=== PATIENT | male | born 1960 | race Caucasian/White ===

== ENCOUNTER 2018-01-29 12:21 | Inpatient (IN) | payer OTHER ==
--- NOTE | 2018-01-29 14:06 | ED ---
General Adult HPI - General Chief complaint: Neuro Symptoms/Deficit Stated complaint: fall slurred speech Source: patient Mode of arrival: wheelchair Limitations: no limitations - History of Present Illness Initial comments: Dictation was produced using [employer] dictation software. please excuse any grammatical, word or spelling errors. Chief Complaint: 57-year-old male multiple comorbidities presents with slurred speech 3 days. History of Present Illness: Patient is a 57-year-old male with multiple comorbidities presents with slurred speech. Patient has history of CVAs, TIAs, seizures. He is postponed on several medications however has not taken them. Patient is brought in by family. Family was concerned patient's have a stroke. He has been having slurred speech. He has had no issues with hypertension. This is grossly abnormal for them prompting them to bring patient to the emergency department today. Patient has no complaints at this time. The ROS documented in this emergency department record has been reviewed and confirmed by me. Those systems with pertinent positive or negative responses have been documented in the HPI. All other systems are other negative and/or noncontributory. - Related Data Home Medications Medication Instructions Recorded Confirmed Pantoprazole Sodium 40 mg PO BID 06/12/15 01/29/18 risperiDONE [RisperDAL] 0.5 mg PO DAILY 06/12/15 01/29/18 Ibuprofen [Motrin] 800 mg PO TID PRN 06/13/17 01/29/18 risperiDONE [RisperDAL] 1 mg PO HS 06/13/17 01/29/18 Ergocalciferol [Vitamin D2] 50,000 unit PO Q7D 01/29/18 01/29/18 Metoprolol Tartrate [Lopressor] 50 mg PO BID 01/29/18 01/29/18 Pravastatin Sodium [Pravachol] 20 mg PO HS 01/29/18 01/29/18 Previous Rx's Medication Instructions Recorded Lisinopril [Zestril] 10 mg PO DAILY #30 tab 06/16/17 levETIRAcetam [Keppra] 750 mg PO Q12HR #60 tab 06/16/17 Allergies Allergy/AdvReac Type Severity Reaction Status Date / Time No Known Allergies Allergy Verified 01/29/18 12:43 Review of Systems ROS Statement: Those systems with pertinent positive or pertinent negative responses have been documented in the HPI. ROS Other: All systems not noted in ROS Statement are negative. Past Medical History Past Medical History: CVA/TIA, GERD/Reflux, Hypertension, Seizure Disorder Additional Past Medical History / Comment(s): 04-16-15 pt admitted for cva.other past medical hx included: migraines,-2014 TIA,hx broken rt shoulder( has plate/screws) History of Any Multi-Drug Resistant Organisms: None Reported Past Surgical History: Appendectomy, Cholecystectomy, Orthopedic Surgery Additional Past Surgical History / Comment(s): rt shoulder surgery(plate/screws) , epidural inj to back, egd Past Anesthesia/Blood Transfusion Reactions: No Reported Reaction Past Psychological History: Depression Smoking Status: Current every day smoker Past Alcohol Use History: None Reported Past Drug Use History: None Reported - Past Family History Mother Family Medical History: Hypertension Additional Family Medical History / Comment(s): heart problems Father History Unknown: Yes General Exam - General Exam Comments Initial Comments: PHYSICAL EXAM: General Impression: Alert and oriented x3, not in acute distress, slurred speech HEENT: Normocephalic atraumatic, extra-ocular movements intact, pupils equal and reactive to light bilaterally, mucous membranes moist. Cardiovascular: Heart regular rate and rhythm, S1&S2 audible, no murmurs, rubs or gallops Chest: Lungs clear to auscultation bilaterally, no rhonchi, no wheeze, no rales Abdomen: Bowel sounds present, abdomen soft, non-tender, non-distended, no organomegaly Musculoskeletal: Pulses present and equal in all extremities, no peripheral edema Motor: Power 5/5 bilaterally, no focal deficits noted Neurological: CN II-XII grossly intact, no focal motor or sensory deficits noted , not a phasic, no extremity neuro deficits, no facial droop Skin: Intact with no visualized rashes Psych: Normal affect and mood Limitations: no limitations Course Vital Signs 01/29/18 01/29/18 12:30 14:32 Temperature 97.8 F Pulse Rate 49 L 42 L Respiratory 18 18 Rate Blood Pressure 173/94 170/97 O2 Sat by Pulse 97 99 Oximetry Medical Decision Making - Medical Decision Making ED course: 57-year-old male with multiple neurologic comorbidities presents with slurred speech 3 weeks. Patient has multiple strokes in the past and has been evaluated for seizures heart rate 49, worse vital signs within normal limits.Patient's clinical presentation suspicious for CVA. Laboratory evaluation obtained. CBC unremarkable. Coag panel unremarkable. Metabolic panel is negative. Cardiac enzymes negative. Chest x-ray shows no acute processes. Computed tomography scan of the brain was obtained showing a stable old right-sided lacunar infarct with more prominent left-sided lacunar infarct on current study versus most recent CT though likely still chronic. Patient had TPA candidate given duration of symptoms approximately 3 days. Patient given aspirin. Patient be admitted for CVA with neurology consult. EKG interpretation: Ventricular rate 46,. Interval 180, QS 90, QTC 395. No FL prolongation, no QTC prolongation, no ST or T-wave changes noted. Overall, this EKG is unremarkable - Lab Data Result diagrams: 01/29/18 14:07 01/29/18 14:07 Lab Results 01/29/18 01/29/18 01/29/18 Range/Units 14:07 14:07 14:07 WBC 5.7 (3.8-10.6) k/uL RBC 4.69 (4.30-5.90) m/uL Hgb 13.6 (13.0-17.5) gm/dL Hct 39.6 (39.0-53.0) % MCV 84.5 (80.0-100.0) fL MCH 28.9 (25.0-35.0) pg MCHC 34.3 (31.0-37.0) g/dL RDW 13.8 (11.5-15.5) % Plt Count 231 (150-450) k/uL Neutrophils % 62 % Lymphocytes % 29 % Monocytes % 5 % Eosinophils % 2 % Basophils % 0 % Neutrophils # 3.5 (1.3-7.7) k/uL Lymphocytes # 1.7 (1.0-4.8) k/uL Monocytes # 0.3 (0-1.0) k/uL Eosinophils # 0.1 (0-0.7) k/uL Basophils # 0.0 (0-0.2) k/uL PT (9.0-12.0) sec INR (<1.2) APTT (22.0-30.0) sec Sodium 140 (137-145) mmol/L Potassium 4.4 (3.5-5.1) mmol/L Chloride 105 (98-107) mmol/L Carbon Dioxide 26 (22-30) mmol/L Anion Gap 9 mmol/L BUN 11 (9-20) mg/dL Creatinine 0.93 (0.66-1.25) mg/dL Est GFR (CKD-EPI)AfAm >90 (>60 ml/min/1.73 sqM) Est GFR (CKD-EPI)NonAf >90 (>60 ml/min/1.73 sqM) Glucose 78 (74-99) mg/dL Calcium 9.3 (8.4-10.2) mg/dL Total Bilirubin 0.7 (0.2-1.3) mg/dL AST 23 (17-59) U/L ALT 31 (21-72) U/L Alkaline Phosphatase 124 (38-126) U/L Total Creatine Kinase 187 H (55-170) U/L CK-MB (CK-2) 1.8 (0.0-2.4) ng/mL CK-MB (CK-2) Rel Index 1.0 Troponin I <0.012 (0.000-0.034) ng/mL Total Protein 6.9 (6.3-8.2) g/dL Albumin 4.0 (3.5-5.0) g/dL 01/29/18 Range/Units 14:07 WBC (3.8-10.6) k/uL RBC (4.30-5.90) m/uL Hgb (13.0-17.5) gm/dL Hct (39.0-53.0) % MCV (80.0-100.0) fL MCH (25.0-35.0) pg MCHC (31.0-37.0) g/dL RDW (11.5-15.5) % Plt Count (150-450) k/uL Neutrophils % % Lymphocytes % % Monocytes % % Eosinophils % % Basophils % % Neutrophils # (1.3-7.7) k/uL Lymphocytes # (1.0-4.8) k/uL Monocytes # (0-1.0) k/uL Eosinophils # (0-0.7) k/uL Basophils # (0-0.2) k/uL PT 10.4 (9.0-12.0) sec INR 1.1 (<1.2) APTT 23.1 (22.0-30.0) sec Sodium (137-145) mmol/L Potassium (3.5-5.1) mmol/L Chloride (98-107) mmol/L Carbon Dioxide (22-30) mmol/L Anion Gap mmol/L BUN (9-20) mg/dL Creatinine (0.66-1.25) mg/dL Est GFR (CKD-EPI)AfAm (>60 ml/min/1.73 sqM) Est GFR (CKD-EPI)NonAf (>60 ml/min/1.73 sqM) Glucose (74-99) mg/dL Calcium (8.4-10.2) mg/dL Total Bilirubin (0.2-1.3) mg/dL AST (17-59) U/L ALT (21-72) U/L Alkaline Phosphatase (38-126) U/L Total Creatine Kinase (55-170) U/L CK-MB (CK-2) (0.0-2.4) ng/mL CK-MB (CK-2) Rel Index Troponin I (0.000-0.034) ng/mL Total Protein (6.3-8.2) g/dL Albumin (3.5-5.0) g/dL Disposition Clinical Impression: CVA (cerebral vascular accident) Disposition: ADMITTED IP TO THIS HOSP Condition: Good Referrals: Rosanne Mari MD [Primary Care Provider] - 1-2 days Decision Time: 15:57
[2018-01-29 14:20] LABS: Basophils % (A) 0 %; Eosinophils # (A) 0.1 k/uL (0-0.7); Eosinophils % (A) 2 %; HCT 39.6 % (39.0-53.0); HGB 13.6 gm/dL (13.0-17.5); Lymphocytes # (A) 1.7 k/uL (1.0-4.8); Lymphocytes % (A) 29 %; MCH 28.9 pg (25.0-35.0); MCHC 34.3 g/dL (31.0-37.0); MCV 84.5 fL (80.0-100.0); Mean Platelet Volume 7.8; Monocytes # (A) 0.3 k/uL (0-1.0); Monocytes % (A) 5 %; Neutrophils # (A) 3.5 k/uL (1.3-7.7); Neutrophils % (A) 62 %; Platelet Count 231 k/uL (150-450); RBC 4.69 m/uL (4.30-5.90); RDW 13.8 % (11.5-15.5); WBC 5.7 k/uL (3.8-10.6)
[2018-01-29 14:25] LABS: INR 1.1 (<1.2); Prothrombin Time 10.4 sec (9.0-12.0)
[2018-01-29 14:26] LABS: Partial Thromboplastin Time 23.1 sec (22.0-30.0)
--- NOTE | 2018-01-29 14:27 | CT ---
EXAMINATION TYPE: CT brain wo con DATE OF EXAM: 01/29/2018 HISTORY: Fall, slurred speech CT DLP: 1029.7 mGycm. Automated Exposure Control for Dose Reduction was Utilized. TECHNIQUE: CT scan of the head is performed without contrast. COMPARISON: CT brain June 13, 2017. FINDINGS: There is no acute intracranial hemorrhage or midline shift identified. There is diffuse v entricular and sulcal prominence consistent with diffuse age-related cerebral atrophy. There is low- attenuation in the periventricular white matter consistent with chronic small vessel ischemic change. Old infarcts right anterior internal capsule and left internal capsule axial image 24 are redemonstr ated, latter slightly more prominent from prior CT, former is stable. The globes are intact and the v isualized sinuses are clear. The calvarium is intact. IMPRESSION: No acute intracranial hemorrhage or midline shift. There is mild to moderate diffuse ag e-related cerebral atrophy and chronic small vessel ischemic change redemonstrated. Stable old right- sided lacunar infarct with more prominent left sided lacunar infarct on current study versus most rec ent CT though still favored overall chronic in age. If clinical concern for acute stroke persists further investigation with MRI may be warranted.
[2018-01-29 14:29] LABS: ALT 31 U/L (21-72); AST 23 U/L (17-59); Alkaline Phosphatase 124 U/L (38-126); Anion Gap 9 mmol/L; Blood Urea Nitrogen 11 mg/dL (9-20); Calcium 9.3 mg/dL (8.4-10.2); Carbon Dioxide 26 mmol/L (22-30); Chloride 105 mmol/L (98-107); Glucose 78 mg/dL (74-99); Potassium 4.4 mmol/L (3.5-5.1); Sodium 140 mmol/L (137-145); Total Bilirubin 0.7 mg/dL (0.2-1.3); Total Protein 6.9 g/dL (6.3-8.2)
--- NOTE | 2018-01-29 14:30 | XR ---
EXAMINATION TYPE: XR chest 2V DATE OF EXAM: 01/29/2018 COMPARISON: 10/21/2015 TECHNIQUE: PA and lateral views submitted. HISTORY: Altered mental status FINDINGS: The lungs are clear and there is no pneumothorax, pleural effusion, or focal pneumonia. Postsurgica l change right shoulder. No overt failure. Hyperinflation suggests COPD. Hypertrophic change of the s pine. Surgical clips in the abdomen. IMPRESSION: 1. No acute process.
[2018-01-29 14:39] LABS: Creatine Kinase 187 U/L (55-170)
[2018-01-29 14:52] LABS: Creatine Kinase MB 1.8 ng/mL (0.0-2.4); Troponin I <0.012 ng/mL (0.000-0.034)
[2018-01-29] MEDS ORDERED: ASPIRIN 325 MG TAB PO STA (15:48)
[2018-01-29] MEDS ORDERED: IBUPROFEN 800 MG TAB PO PRN (18:27)
[2018-01-29] MEDS ORDERED: TEMAZEPAM 15 MG CAP PO PRN (18:28)
[2018-01-29] MEDS ORDERED: ACETAMINOPHEN TAB 500 MG TAB PO PRN (18:28)
[2018-01-29] MEDS ORDERED: HYDROcodone/APAP 5-325MG 1 EACH TAB PO PRN (18:28)
[2018-01-29] MEDS ORDERED: ALPRAZolam 0.25 MG TAB PO PRN (18:28)
[2018-01-29 18:55] LABS: Appearance,Urine Clear (Clear); Bilirubin,Urine Negative (Negative); Blood,Urine Negative (Negative); Color,Urine Yellow; Glucose,Urine (UA) Negative (Negative); Ketones,Urine Trace (Negative); Leukocyte Esterase,Urine Negative (Negative); Nitrite,Urine Negative (Negative); Protein,Urine Negative (Negative); Specific Gravity,Urine 1.012 (1.001-1.035); Urobilinogen,Urine <2.0 mg/dL (<2.0)
[2018-01-29 19:05] LABS: Amphetamine Screen,Urine Not Detected (NotDetected); Barbiturate Screen,Urine Not Detected (NotDetected); Benzodiazepines Screen,Urine Detected (NotDetected); Cocaine Screen,Urine Not Detected (NotDetected); Methadone Screen, Urine Not Detected (NotDetected); Opiate Screen,Urine Not Detected (NotDetected); Oxycodone Screen, Urine Not Detected (NotDetected); Phencyclidine Screen,Urine Not Detected (NotDetected); Tricyclic Antidepressant,Urine Not Detected (NotDetected); Urn Cannabinoid Scrn Not Detected (NotDetected)
--- NOTE | 2018-01-29 19:26 | US ---
EXAMINATION TYPE: US carotid duplex BILAT DATE OF EXAM: 01/29/2018 COMPARISON: US CLINICAL HISTORY: stroke. Abnormal speech, falls EXAM MEASUREMENTS: RIGHT: Peak Systolic Velocity (PSV) cm/sec ----- Right CCA: 69.7 ----- Right ICA: 87.8 ----- Right ECA: 111.2 ICA/CCA ratio: 1.3 RIGHT: End Diastole cm/sec ----- Right CCA: 20.0 ----- Right ICA: 26.3 ----- Right ECA: 16.7 LEFT: Peak Systolic Velocity (PSV) cm/sec ----- Left CCA: 76.7 ----- Left ICA: 61.9 ----- Left ECA: 93.3 ICA/CCA ratio: 0.8 LEFT: End Diastole cm/sec ----- Left CCA: 17.4 ----- Left ICA: 18.2 ----- Left ECA: 10.9 VERTEBRALS (direction of flow): Right Vertebral: Appeared occluded as seen on previous Left Vertebral: Antegrade Rhythm: Normal Soft plaque bilaterally, more on right, with no evidence of significant stenosis/ Right vertebral a ppeared occluded IMPRESSION: No flow seen in the right vertebral artery. Images in measurements suggest 25% stenosis in both internal carotid arteries. Criteria for Assigning % of Stenosis / Diameter reduction (Estimation based on the indirect measurements of the internal carotid artery velocities (ICA PSV). 1. Normal (no stenosis)=ICA PSV < 125 cm/s: ratio < 2.0: ICA EDV<40 cm/s. 2. Less than 50% stenosis=ICA PSV < 125 cm/s: ratio < 2.0: ICA EDV<40 cm/s. 3. 50 to 69% stenosis=ICA PSV of 125 to 230 cm/s: ration 2.0 ? 4.0: ICA EDV 40-100 cm/s. 4. Greater than 70% stenosis to near occlusion= ICA PSV > 230 cm/s: ratio > 4.0: ICA EDV > 100 cm/s. 5. Near occlusion= ICA PSV velocities may be low or undetectable: variable ratio and ICA EDV. 6. Total occlusion=unable to detect flow.
--- NOTE | 2018-01-29 20:06 | HP ---
HISTORY AND PHYSICAL CHIEF COMPLAINT: Dysarthria. HISTORY OF PRESENT ILLNESS: This 57-year-old woman with a past medical history of multiple medical problems , CVA, GERD, hypertension, seizure disorder, being followed by Dr. Rosanne Mari in the outpatient setting is complaining of dysarthria. The patient had slurred speech. The family was concerned the patient is having a stroke and the patient taken to [facility] and admitted for further evaluation and treatment. There is no history of any headache, loss of consciousness or seizures. No history of new weakness. The patient diffusely weak because of previous strokes at this time. The CT scan was done which showed stable old right sided focal lacunar infarct, left sided lacunar infarct was also noted. There is no history of fever, rigors or chills. No history of headache, loss of consciousness, seizures. PAST MEDICAL HISTORY: Multiple strokes, CVA, TIA, GERD, hypertension, seizure disorder, appendectomy, cholecystectomy, depression. HOME MEDICATIONS: Reviewed and include: 1. Vitamin D2 50,000 q.7 days. 2. Risperdal 0.5 daily. 3. Pravachol 20 mg q.h.s. 4. Lopressor 50 mg b.i.d. 5. Risperdal 1 mg q.h.s. 6. Keppra 750 mg p.o. b.i.d. 7. Protonix 40 mg b.i.d. 8. Zestril 10 mg p.o. daily. 9. Motrin 800 mg t.i.d. p.r.n. ALLERGIES: Allergies are none. FAMILY HISTORY: History of hypertension, heart problems in family. SOCIAL HISTORY: History of THC, history of smoking. REVIEW OF SYSTEMS: ENT: Diminished vision. Diminished hearing. CARDIOVASCULAR: No angina or palpitations. RESPIRATORY: No cough. GI: As mentioned earlier. no dysuria. NERVOUS SYSTEM as mentioned earlier. ALLERGY/IMMUNOLOGY: No asthma or hayfever. MUSCULOSKELETAL as mentioned earlier. HEMATOLOGY/ONCOLOGY: No history of anemia. ENDOCRINE: As mentioned earlier. CONSTITUTIONAL: As mentioned earlier. Dermatology: Negative. Rheumatology: Negative. Psychiatry: As mentioned earlier. PHYSICAL EXAMINATION: The patient is alert and oriented x three. Dysarthric. Pulse 43, blood pressure 170/82, respiration 18, temperature 97.8, pulse ox 98% on room air. HEENT: Conjunctivae normal. Oral mucosa moist. NECK is no jugular venous distention. No carotid bruit. No lymph node enlargement. Cardiovascular system: S1, S2 muffled. RESPIRATORY: Breath sounds diminished in the bases. A few scattered rhonchi. No crackles. ABDOMEN: Soft, nontender. No mass palpable. LEGS: No edema and no swelling. NERVOUS SYSTEM: Higher functions as mentioned earlier. Moves all 4 limbs. Mild diffuse weakness. No focal motor or sensory deficits. Lymphatics: No lymph nodes palpable in the neck, axillae or groin. SKIN: No ulcer. No rash. No bleeding. JOINTS: No active deforming arthropathy. LABS: At this time shows CBC within normal limits and total creatinine kinase 187. ASSESSMENT: 1. Dysarthria. Possible acute cerebrovascular accident versus stroke. 2. History of multiple lacunar infarcts in the past. 3. Gait dysfunction secondary to strokes. 4. Bradycardia sinus. 5. History of cerebrovascular accident/transient ischemic attack. 6. History of gastroesophageal reflux disease. 7. History of hypertension. 8. History of seizure disorder. 9. History of migraines. 10.History of degenerative joint disease. 11.History of cholecystectomy. 12.History of depression. 13.History of continued ongoing nicotine dependence. RECOMMENDATIONS AND DISCUSSION: In this 57-year-old gentleman who presented with multiple complex medical issues , we will monitor the patient closely. Continue the current medications. Management. Symptomatic treatment. Neuro checks. Neurovascular workup and neurology evaluation. Patient had MRI previously. Otherwise, I would also recommend initial Lipitor. DVT prophylaxis. PT, OT evaluation. See orders for details. Guarded prognosis. Further recommendations to follow. Home medications are reviewed. Antiplatelet agents. Copy of this dictated forwarded to Dr. Rosanne Mari, who is the primary physician. MMODL / IJN: [id number] / [facility]
[2018-01-29 20:43] LABS: Glucose,Whole Blood 81 mg/dL (75-99)
[2018-01-29] MEDS: NICOTINE 14MG/24HR PATCH TRANSDERM SCH (20:47)
[2018-01-29] MEDS: HEPARIN SODIUM,PORCINE 5,000 UNIT/ML 1 ML VIAL SQ SCH (20:47)
[2018-01-29] MEDS: ATORVASTATIN 20 MG TAB PO SCH (20:47)
[2018-01-29] MEDS: risperiDONE 1 MG TAB PO SCH (20:49)
[2018-01-29] MEDS: PANTOPRAZOLE 40 MG TABLET PO SCH (20:49)
[2018-01-29] MEDS: METOPROLOL TARTRATE 50 MG TAB PO SCH (21:11)
[2018-01-30 05:51] LABS: Glucose,Whole Blood 65 mg/dL (75-99)
[2018-01-30 06:12] LABS: Glucose,Whole Blood 79 mg/dL (75-99)
[2018-01-30 06:14] LABS: Basophils % (A) 1 %; Eosinophils # (A) 0.1 k/uL (0-0.7); Eosinophils % (A) 2 %; HCT 38.6 % (39.0-53.0); HGB 12.3 gm/dL (13.0-17.5); Lymphocytes # (A) 2.4 k/uL (1.0-4.8); Lymphocytes % (A) 40 %; MCH 27.5 pg (25.0-35.0); MCHC 31.9 g/dL (31.0-37.0); MCV 86.1 fL (80.0-100.0); Monocytes # (A) 0.3 k/uL (0-1.0); Monocytes % (A) 4 %; Neutrophils # (A) 3.1 k/uL (1.3-7.7); Neutrophils % (A) 52 %; Platelet Count 195 k/uL (150-450); RBC 4.48 m/uL (4.30-5.90); RDW 13.8 % (11.5-15.5)
[2018-01-30 06:24] LABS: Anion Gap 11 mmol/L; Blood Urea Nitrogen 9 mg/dL (9-20); Calcium 9.2 mg/dL (8.4-10.2); Carbon Dioxide 25 mmol/L (22-30); Chloride 102 mmol/L (98-107); Cholesterol 130 mg/dL (<200); Glucose 68 mg/dL (74-99); HDL Cholesterol 29 mg/dL (40-60); LDL Cholesterol,Calculated 83 mg/dL (0-99); Sodium 138 mmol/L (137-145); Triglycerides 92 mg/dL (<150)
[2018-01-30] MEDS: PANTOPRAZOLE 40 MG TABLET PO SCH ×2 (06:25→17:07)
--- NOTE | 2018-01-30 07:40 | P.CNNES ---
History of Present Illness Consult date: 01/29/18 Reason for Consult: Patient is admitted with 3 day history of slurred speech and stroke. History of Present Illness: This patient is a 57-year-old right-handed white male who was brought into the emergency room at [facility] today by family members for evaluation of episode of slurred speech. Apparently for the past 3 days at home he was noted to have slurring of his speech. He has history of previous TIA as well as seizure disorder in the past. When the patient was questioned today as to why he was admitted to the hospital he states he had a seizure. He is a very poor historian. He is not able to provide accurate history today at bedside. Family was concerned the patient may have suffered a stroke. He was evaluated in the emergency room today by Dr. Eron kennedy. He was not a candidate for intervention with TPA as he was outside of the therapeutic window. He was sent for a computed tomography scan of the brain which revealed no acute intracranial hemorrhage or midline shift. There was mild to moderate diffuse age-related cerebral atrophy and chronic small vessel ischemic changes noted. Evidence for a old right-sided lacunar infarct and a more prominent left -sided lacunar infarct was noted. As noted there was no evidence for an acute stroke. He does have very hypo-phonic speech pattern at this time. He does seem to answer questions appropriately but very very slow. He does have history of underlying psychiatric issues and does take Risperdal on a daily basis. Patient states he does have a history of seizure disorder but does not recollect when his last seizure may have occurred. He does take levetiracetam as his anticonvulsant medication. He has been using 750 mg 1 tablet twice a day. We will obtain a levetiracetam blood level for him tomorrow morning. He should be maintained on his current dose of levetiracetam. Once again he is a very poor historian. He denies any headache or focal weakness today on examination. We have recommended the patient undergo a complete stroke evaluation including MRI of the brain and EEG. His overall prognosis at this time remains very guarded. Review of Systems Constitutional: Denies chills, Denies fever Eyes: denies blurred vision, denies pain Ears, nose, mouth and throat: Denies headache, Denies sore throat Cardiovascular: Denies chest pain, Denies shortness of breath Respiratory: Denies cough Gastrointestinal: Denies abdominal pain, Denies diarrhea, Denies nausea, Denies vomiting Musculoskeletal: Denies myalgias Integumentary: Denies pruritus, Denies rash Neurological: Reports aphasia, Reports change in mentation, Reports confusion, Reports convulsions, Reports memory loss, Reports seizures, Reports tingling, Denies numbness, Denies weakness Psychiatric: Reports confusion, Reports difficulty concentrating, Reports disorientation, Reports memory loss, Denies anxiety, Denies depression Endocrine: Denies fatigue, Denies weight change Past Medical History Past Medical History: CVA/TIA, GERD/Reflux, Hypertension, Seizure Disorder Additional Past Medical History / Comment(s): ) History of Any Multi-Drug Resistant Organisms: None Reported Past Surgical History: Appendectomy, Cholecystectomy, Orthopedic Surgery Additional Past Surgical History / Comment(s): rt shoulder surgery(plate/screws) , epidural inj to back, egd Past Anesthesia/Blood Transfusion Reactions: No Reported Reaction Smoking Status: Current every day smoker - Past Family History Mother Family Medical History: Hypertension Additional Family Medical History / Comment(s): heart problems Father History Unknown: Yes Medications and Allergies Home Medications Medication Instructions Recorded Confirmed Type Pantoprazole Sodium 40 mg PO BID 06/12/15 01/29/18 History risperiDONE [RisperDAL] 0.5 mg PO DAILY 06/12/15 01/29/18 History Ibuprofen [Motrin] 800 mg PO TID PRN 06/13/17 01/29/18 History risperiDONE [RisperDAL] 1 mg PO HS 06/13/17 01/29/18 History Lisinopril [Zestril] 10 mg PO DAILY #30 tab 06/16/17 01/29/18 Rx levETIRAcetam [Keppra] 750 mg PO Q12HR #60 tab 06/16/17 01/29/18 Rx Ergocalciferol [Vitamin D2] 50,000 unit PO Q7D 01/29/18 01/29/18 History Metoprolol Tartrate [Lopressor] 50 mg PO BID 01/29/18 01/29/18 History Pravastatin Sodium [Pravachol] 20 mg PO HS 01/29/18 01/29/18 History Allergies Allergy/AdvReac Type Severity Reaction Status Date / Time No Known Allergies Allergy Verified 01/29/18 12:43 Physical Examination - Vital Signs Vital Signs: Vital Signs Temp Pulse Resp BP Pulse Ox 01/29/18 16:25 43 L 18 175/86 98 01/29/18 14:32 42 L 18 170/97 99 01/29/18 12:30 97.8 F 49 L 18 173/94 97 Intake and Output 01/29/18 01/29/18 01/29/18 06:59 14:59 22:59 Other: Weight 83.869 kg - Constitutional General appearance: average body habitus, cooperative - EENT EENT: PERRL, mucous membranes moist - Respiratory Respiratory: lungs clear, normal breath sounds - Cardiovascular Cardiovascular: regular rate, normal S1, normal S2 Extremities: no peripheral edema bilaterally - Gastrointestinal Gastrointestinal: normoactive bowel sounds - Neurologic Cranial nerve examination: PERRL, EOMI, VFF, V1/V2/V3 grossly intact, face symmetric, tongue midline, intact gag reflex, intact corneal reflex, normal palatal elevation Speech examination: intact Sensorimotor examination: intact Motor examination - right side: 4/5: biceps, triceps, wrist flexion, wrist extension, reinforcing steel erector, hip flexors, knee extensors, dorsiflexion, toe extension (EHL) , plantarflexion Motor examination - left side: 4/5: biceps, triceps, wrist flexion, wrist extension, reinforcing steel erector, hip flexors, knee extensors, dorsiflexion, toe extension (EHL) , plantarflexion Detailed sensory examination: intact Reflex and gait examination: intact Reflexes: 1+: ankle, bicep, knee, tricep - Musculoskeletal Musculoskeletal: no pain - Psychiatric Psychiatric: mood/affect appropriate, cooperative Results - Laboratory Findings CBC and BMP: 01/30/18 05:49 01/30/18 05:49 Abnormal Lab Findings: Abnormal Labs 01/29/18 01/29/18 14:07 18:30 Total Creatine Kinase 187 H Urine Ketones Trace H U Benzodiazepines Scrn Detected H Assessment and Plan (1) Transient ischemic attack (TIA) Current Visit: No Status: Acute Code(s): G45.9 - TRANSIENT CEREBRAL ISCHEMIC ATTACK, UNSPECIFIED SNOMED Code(s): 238765265 (2) History of CVA (cerebrovascular accident) Current Visit: No Status: Acute Code(s): Z86.73 - PRSNL HX OF TIA (TIA), AND CEREB INFRC W/O RESID DEFICITS SNOMED Code(s): 301472834 (3) Metabolic encephalopathy Current Visit: Yes Status: Acute Code(s): G93.41 - METABOLIC ENCEPHALOPATHY SNOMED Code(s): 16912796 (4) Intractable seizure disorder Current Visit: No Status: Acute Code(s): G40.919 - EPILEPSY, UNSP, INTRACTABLE, WITHOUT STATUS EPILEPTICUS SNOMED Code(s): 207959133 Plan: This patient is a 57-year-old male who was admitted to hospital with a 3 day history of slurred speech. Family members noted that he was showing no improvement and actually became more confused. He has a history of previous stroke as well as intractable seizure disorder. He was brought into the emergency room at [facility] and was evaluated there by Dr. Littlejohn. He was not considered for thrombolytic therapy as he was outside of the therapeutic window. He underwent a computed tomography scan of the brain the results which are noted above. He has been admitted to hospital for further evaluation for stroke. We recommend the patient undergo an MRI of the brain for further evaluation. We will obtain an EEG given his history of seizure disorder. He should continue on his current dose of levetiracetam for management of his seizure disorder. His overall prognosis at this time remains guarded. Would recommend a consultation with psychiatry given his extensive psychiatric history. His overall prognosis at this time remains guarded. We will continue close neurological follow-up for the patient during this admission. His overall prognosis at this time remains guarded. Time with Patient: Greater than 30
--- NOTE | 2018-01-30 09:58 | MR ---
EXAMINATION TYPE: MR brain wo con DATE OF EXAM: 01/30/2018 9:13 AM. COMPARISON: Previous study dated 10/22/2015. HISTORY: Slurred speech. Technique: Multiplanar, multiecho imaging of the brain was obtained without intravenous contrast. FINDINGS: Midline structures are unremarkable. There is a normal craniocervical junction. There is a 1.5 cm area of restricted diffusion in the left thalamus. This is compatible with a subacu te ischemic event. There are normal vascular flow voids. The orbits are unremarkable. There is no evidence of a CP angle mass lesion. The FLAIR dataset is compromised by patient motion artifact. There are both punctate and confluent pe riventricular white matter changes including the area of restricted diffusion. This is compatible wit h a combination of small vessel disease and chronic ischemic change. There are several small loculati ons in the internal capsule on the right. There is no mass effect, midline shift or intracranial bloo d. IMPRESSION: 1. SUBACUTE INFARCTION OF THE LEFT THALAMUS. 2. EVIDENCE OF OLD LACUNAR INFARCTS IN THE EXTERNAL CAPSULE ON THE RIGHT. 3. BOTH CONFLUENT AND PUNCTATE PERIVENTRICULAR WHITE MATTER CHANGE CONSISTENT WITH A COMBINATION OF S MALL VESSEL DISEASE AND CHRONIC ISCHEMIC CHANGE.
[2018-01-30] MEDS: NICOTINE 14MG/24HR PATCH TRANSDERM SCH (10:17)
[2018-01-30] MEDS: MULTIVITAMINS, THERA 1 EACH TAB PO SCH (10:18)
[2018-01-30] MEDS: METOPROLOL TARTRATE 50 MG TAB PO SCH ×3 (10:18→17:07)
[2018-01-30] MEDS: ASPIRIN 325 MG TAB PO SCH (10:18)
[2018-01-30] MEDS: LISINOPRIL 10 MG TAB PO SCH (10:18)
[2018-01-30] MEDS: FOLIC ACID 1 MG TAB PO SCH (10:19)
[2018-01-30] MEDS: THIAMINE 100 MG TAB PO SCH (10:19)
[2018-01-30] MEDS: HEPARIN SODIUM,PORCINE 5,000 UNIT/ML 1 ML VIAL SQ SCH ×2 (10:20→20:57)
[2018-01-30] MEDS: risperiDONE 0.5 MG TAB PO SCH (10:29)
[2018-01-30 12:16] LABS: Glucose,Whole Blood 143 mg/dL (75-99)
--- NOTE | 2018-01-30 14:32 | ECHOF ---
Referral Reason:Stroke MEASUREMENTS -------- HEIGHT: 175.3 cm WEIGHT: 82.1 kg BP: RVIDd: 2.5 cm (< 3.3) IVSd: 1.3 cm (0.6 - 1.1) LVIDd: 3.5 cm (3.9 - 5.3) LVPWd: 1.2 cm (0.6 - 1.1) IVSs: 2.4 cm LVIDs: 1.7 cm LVPWs: 1.7 cm Ao Diam: 3.5 cm (2.0 - 3.7) AV Cusp: 2.2 cm (1.5 - 2.6) LA Diam: 3.4 cm (2.7 - 3.8) MV EXCURSION: 11.453 mm (> 18.000) MV EF SLOPE: 57 mm/s (70 - 150) EPSS: 0.7 cm MV E Lee: 0.94 m/s MV DecT: 320 ms MV A Lee: 0.80 m/s MV E/A Ratio: 1.17 RAP: 5.00 mmHg RVSP: 11.77 mmHg FINDINGS -------- Sinus rhythm. This was a technically good study. The left ventricular size is normal. There is mild concentric left ventricular hypertrophy. Overa ll left ventricular systolic function is normal with, an EF between 55 - 60 %. The right ventricle is normal in size and function. The left atrium is normal in size. The right atrium is normal in size. The aortic valve is trileaflet, and appears structurally normal. No aortic stenosis or regurgitation. Mild mitral regurgitation is present. Mild tricuspid regurgitation present. The right ventricular systolic pressure, as measured by Doppl er, is 11.77mmHg. Pulmonic valve appears structurally normal. The aortic root size is normal. The pericardium is normal. CONCLUSIONS -------- 1. Sinus rhythm. 2. This was a technically good study. 3. The left ventricular size is normal. 4. There is mild concentric left ventricular hypertrophy. 5. Overall left ventricular systolic function is normal with, an EF between 55 - 60 %. 6. The right ventricle is normal in size and function. 7. The left atrium is normal in size. 8. The right atrium is normal in size. 9. The aortic valve is trileaflet, and appears structurally normal. No aortic stenosis or regurgitati on. 10. Mild mitral regurgitation is present. 11. Mild tricuspid regurgitation present. 12. The right ventricular systolic pressure, as measured by Doppler, is 11.77mmHg. 13. Pulmonic valve appears structurally normal. 14. The aortic root size is normal. 15. The pericardium is normal. REFRIGERATOR MOVER: Alexandrea Wesley RDCS
--- NOTE | 2018-01-30 15:46 | PN ---
PROGRESS NOTE DATE OF SERVICE: 01/30/2018 This 57-year-old gentleman who was admitted with dysarthria had a possible acute CVA. Patient had multiple lacunar infarcts in the past. An MRI was done today which showed subacute infarction of the left thalamus and evidence of old lacunar infarcts also. Both confluent and punctate periventricular images are also noted. Neurology is following the patient closely. A carotid Doppler was also done which showed 25% stenosis of both internal carotid arteries. Past medical history reviewed. REVIEW OF SYSTEMS: CARDIOVASCULAR SYSTEM: No angina, palpitations. RESPIRATORY SYSTEM: As mentioned earlier. GI: As mentioned earlier. : No dysuria or retention. NERVOUS SYSTEM: As mentioned earlier. CURRENT MEDICATIONS: Reviewed. They include: 1. Tylenol 500 q.6 p.r.n. 2. [place] p.r.n. 3. Xanax 0.25. 4. Aspirin 325. 5. Lipitor 20 mg. 6. Vitamin D2. 7. Folic acid. 8. Heparin 5000 units subcutaneously b.i.d. 9. Motrin. 10.Keppra. 11.Zestril. 12.Lopressor. 13.Multivitamins. 14.Habitrol 14. 15.Protonix. 16.Risperdal daily. 17.Restoril. 18.Vitamin B1. PHYSICAL EXAMINATION: Patient is alert, oriented x3. Pulse 52, blood pressure 159/82, respiration 14, temperature 96.9, pulse ox 94% on room air. HEENT: Conjunctivae normal. NECK: No jugular venous distention. CARDIOVASCULAR SYSTEM: S1, S2 muffled. RESPIRATORY SYSTEM: Breath sounds diminished at the bases. A few scattered rhonchi. No crackles. ABDOMEN: Soft, non-tender. No mass palpable. LEGS: No edema. No swelling. NERVOUS SYSTEM: Mild diffuse weakness. LYMPHATICS: No lymph node palpable in neck, axillae or groin. SKIN: No ulcer, rash, bleeding. LABS: WBC 6, hemoglobin 12.3, glucose 65 and 143. ASSESSMENT: 1. Dysarthria; possible acute left thalamic subacute stroke. 2. Old lacunar infarct in the external capsule on the right. 3. Chronic small-vessel disease and chronic ischemic changes on the MRI scan. 4. History of multiple lacunar infarcts in the past. 5. Gait dysfunction secondary to strokes. 6. Sinus bradycardia. 7. History of cerebrovascular accident, transient ischemic attack. 8. History of gastroesophageal reflux disease. 9. Hypertension. 10.Seizure disorder. 11.History of migraine. 12.History of degenerative joint disease. 13.History of cholecystectomy. 14.Depression. 15.History of continued ongoing nicotine dependence. RECOMMENDATIONS AND DISCUSSION: I recommend to continue current medication, continue symptomatic treatment. Continue with antiplatelet agents. Continue with the DVT prophylaxis. Continue with the Lipitor. Monitor closely. Telemetry. Otherwise continue to monitor with Neurology. Guarded prognosis. Further recommendations to follow. MMODL / IJN: [id number] /
[2018-01-30 17:08] LABS: Glucose,Whole Blood 113 mg/dL (75-99)
[2018-01-30] MEDS: FLUoxetine HCL 20 MG CAP PO SCH (17:08)
[2018-01-30 20:48] LABS: Glucose,Whole Blood 119 mg/dL (75-99)
[2018-01-30] MEDS: ATORVASTATIN 20 MG TAB PO SCH (20:57)
[2018-01-30] MEDS: risperiDONE 1 MG TAB PO SCH (20:57)
--- NOTE | 2018-01-30 20:58 | CONS ---
CONSULTATION DATE OF SERVICE: January 30, 2018. REASON FOR CONSULTATION: Worsening depression. HISTORY OF PRESENT ILLNESS: Mr. Patel Garsia is a 57 years of age, , male was seen with past psych history of depression and traumatic brain injury, admitted here secondary to stroke complication. The patient is having slurred speech. Psych was consulted as patient was getting extremely depressed and down. Patient was seen, interviewed, found very withdrawn and down. He endorses severe anhedonia, irritability, problems falling asleep, low energy, lack of motivation, feeling hopeless, helpless, but denies any suicidal or homicidal ideation. The patient has history of suicidal ideation in the past. Patient denies hearing voices, seeing things. Denying symptoms of psychosis. Denies any symptoms of OCD to me. PAST PSYCH HISTORY: Significant for depression. The patient does not remember taking any psychotropics. PAST MEDICAL HISTORY: Of hypertension and stroke. ALLERGIES: No known drug allergies. FAMILY PSYCH HISTORY: Unknown. PERSONAL HISTORY AND SOCIAL: Patient reports he was born and raised in [place], raised by both parents. Denies abuse. He made it up to 10th grade and then dropped out. He reported having a head injury. Since then he has been disabled. LEGAL HISTORY: None. SOCIAL HISTORY: None. MENTAL CONDITION: Patient is 57 years. Head average height. male, looks stated age, found very withdrawn. Had poor eye contact. Speech few words and a soft tone with some slurred speech. Mood dysphoric. Anxious with congruent affect. Admits to suicidal ideation and not seen responding to internal flap. His attention was somewhat not good. His memory was somewhat impaired. Insight and judgment fair. ASSESSMENT: Major depressive disorder, recurrent, severe, without psychotic features. Traumatic brain injury. PLAN: We will start him on Prozac 20 mg and titrate up accordingly. Encouraged to do some meetings. Supportive therapy provided. Psychiatry will follow. MMODL / IJN: [id number] /
[2018-01-31 05:57] LABS: Glucose,Whole Blood 95 mg/dL (75-99)
[2018-01-31] MEDS: PANTOPRAZOLE 40 MG TABLET PO SCH ×2 (06:30→17:03)
[2018-01-31 06:49] LABS: Basophils % (A) 0 %; Eosinophils # (A) 0.1 k/uL (0-0.7); Eosinophils % (A) 1 %; HCT 39.5 % (39.0-53.0); HGB 12.8 gm/dL (13.0-17.5); Lymphocytes # (A) 2.1 k/uL (1.0-4.8); Lymphocytes % (A) 28 %; MCH 27.9 pg (25.0-35.0); MCHC 32.3 g/dL (31.0-37.0); MCV 86.3 fL (80.0-100.0); Mean Platelet Volume 7.4; Monocytes # (A) 0.3 k/uL (0-1.0); Monocytes % (A) 4 %; Neutrophils # (A) 4.8 k/uL (1.3-7.7); Neutrophils % (A) 65 %; Platelet Count 197 k/uL (150-450); RBC 4.58 m/uL (4.30-5.90); RDW 13.8 % (11.5-15.5); WBC 7.4 k/uL (3.8-10.6)
[2018-01-31 07:06] LABS: Calcium 9.1 mg/dL (8.4-10.2); Potassium 3.9 mmol/L (3.5-5.1)
[2018-01-31] MEDS: risperiDONE 0.5 MG TAB PO SCH (08:08)
[2018-01-31] MEDS: NICOTINE 14MG/24HR PATCH TRANSDERM SCH (08:08)
[2018-01-31] MEDS: METOPROLOL TARTRATE 50 MG TAB PO SCH ×2 (08:09→20:40)
[2018-01-31] MEDS: MULTIVITAMINS, THERA 1 EACH TAB PO SCH (08:09)
[2018-01-31] MEDS: HEPARIN SODIUM,PORCINE 5,000 UNIT/ML 1 ML VIAL SQ SCH ×2 (08:09→20:40)
[2018-01-31] MEDS: ASPIRIN 325 MG TAB PO SCH (08:09)
[2018-01-31] MEDS: FLUoxetine HCL 20 MG CAP PO SCH (08:09)
[2018-01-31] MEDS: LISINOPRIL 10 MG TAB PO SCH (08:09)
[2018-01-31] MEDS: THIAMINE 100 MG TAB PO SCH (08:10)
[2018-01-31] MEDS: FOLIC ACID 1 MG TAB PO SCH (08:10)
--- NOTE | 2018-01-31 09:04 | P.PN ---
Subjective Progress Note Date: 01/30/18 This patient is a 57-year-old right-handed white male who was admitted to [facility] with a 3 day history of slurred speech and confusion. His initial evaluation in the emergency room by Dr. Littlejohn on 01/29 failed to reveal any acute findings. He was not a candidate for TPA intervention. His CAT scan of the brain revealed no acute intracranial hemorrhage or midline shift. There was mild to moderate diffuse age-related cerebral atrophy and chronic small vessel ischemic changes noted. Evidence for an old right lacunar infarct was noted. The patient's subsequent he was recommended to undergo MRI of the brain for further evaluation. Patient completed a MRI of the brain today and results indicated a subacute infarction involving the left thalamus. Review the MRI films also revealed possibility of 2 lesions in the left allan. This raises a question of possible cardioembolic stroke. We will review the MRI films today with the radiologist Dr. Elmore to get his expert opinion. Given the findings of his MRI we would recommend a cardiology consultation for possible HODAN procedure. This case was discussed with Dr. Elmore and he did review the MRI films once again. He agrees that there are 2 lesions in the left side of the allan suggesting acute ischemia. For this reason we will consult cardiology today for evaluation and need for HODAN procedure. These findings suggest cardioembolic stroke for this patient. Case was discussed with the patient today as well who show some slight improvement in his overall neurological status today. The patient has shown some improvement in his mental status today but still has confusion and mild dysarthric speech. We will continue a complete stroke evaluation for this patient. His overall prognosis still remains very guarded. The patient has a history of underlying seizure disorder and is currently on levetiracetam. We are waiting his anticonvulsant blood levels to return from the laboratory. His overall prognosis at this time remains guarded. Objective - Vital Signs Vital signs: Vital Signs Temp 96.8 F L 01/31/18 08:00 Pulse 78 01/31/18 08:00 Resp 14 01/31/18 08:00 BP 113/66 01/31/18 08:00 Pulse Ox 94 L 01/31/18 08:00 Intake & Output 01/30/18 01/31/18 01/31/18 18:59 06:59 18:59 Intake Total 880 Output Total 1450 400 Balance -570 -400 Weight 83.5 kg Intake: Oral 880 Output: Urine 1450 400 - Exam Physical examination: PHYSICAL EXAMINATION: Patient is resting comfortably in bed. VITAL SIGNS: Blood pressure is [159/82]. Heart rate is [52]. Respiration is [14] . Temperature is [96.9]. HEENT: Head is atraumatic, neck is supple, there were no carotid bruits. CHEST: Lungs are clear to auscultation and percussion. CARDIAC: S1, S2 normal rate and rhythm. There is no murmur. ABDOMEN: Soft and nontender. Bowel sounds are present. EXTREMITIES: There is no pedal edema. Peripheral pulses are present. Neurological examination: Patient's neurological examination is unchanged from yesterday. He is showing some improvement in his overall mental status and is more awake and alert. Still has some difficulty with his speech pattern with mild dysarthria. We reviewed MRI results with him today bedside. - Labs CBC & Chem 7: 01/31/18 06:27 01/31/18 06:27 Labs: Abnormal Lab Results - Last 24 Hours (Table) 01/30/18 01/30/18 01/30/18 Range/Units 12:01 16:56 20:47 Hgb (13.0-17.5) gm/dL POC Glucose (mg/dL) 143 H 113 H 119 H (75-99) mg/dL 01/31/18 Range/Units 06:27 Hgb 12.8 L (13.0-17.5) gm/dL POC Glucose (mg/dL) (75-99) mg/dL Assessment and Plan (1) Transient ischemic attack (TIA) Current Visit: No Status: Acute Code(s): G45.9 - TRANSIENT CEREBRAL ISCHEMIC ATTACK, UNSPECIFIED SNOMED Code(s): 007808318 (2) History of CVA (cerebrovascular accident) Current Visit: No Status: Acute Code(s): Z86.73 - PRSNL HX OF TIA (TIA), AND CEREB INFRC W/O RESID DEFICITS SNOMED Code(s): 578551227 (3) Metabolic encephalopathy Current Visit: Yes Status: Acute Code(s): G93.41 - METABOLIC ENCEPHALOPATHY SNOMED Code(s): 11864782 (4) Intractable seizure disorder Current Visit: No Status: Acute Code(s): G40.919 - EPILEPSY, UNSP, INTRACTABLE, WITHOUT STATUS EPILEPTICUS SNOMED Code(s): 262752696 Plan: This patient is a 57-year-old right-handed white male who was admitted to [facility] on 01/29/2018 with 3 day history of slurred speech and confusion. He underwent MRI of the brain today results of which have been reviewed and discussed with the radiologist Dr. Elmore. Patient MRI films reveal evidence of any acute left thalamic infarction as well as an acute left pontine infarction. This raises a suspicion for cardioembolic stroke. We are recommending a consultation with cardiology for evaluation of HODAN procedure for this patient given the acute stroke findings. Neurologically he remained stable and intact. He also has being treated for underlying seizure disorder and we are waiting his levetiracetam blood level to return from the laboratory. We will continue close neurological follow-up for this patient and continue with her stroke assessment. His overall prognosis at this time remains very guarded. We will continue close neurological follow-up of this patient during this admission.
--- NOTE | 2018-01-31 10:05 | P.CRDCN ---
History of Present Illness History of present illness: Mr. Garsia is a pleasant 57-year-old male past medical history significant for CVA, seizures, gastroesophageal reflux disease and hypertension. If necessary in consultation for HODAN secondary to recent CVA. He presented to the hospital 2 days ago with symptoms of slurred speech 3 days. MRI reveals subacute infarction of the left thalamus with evidence of old lacunar infarction the external capsule on the right. Bilateral carotid Dopplers suggest 25% stenosis of both internal carotid arteries. Echocardiogram obtained reveals preserved left ventricular systolic function with ejection fraction 55-60%. There is no evidence of arrhythmia noted on telemetry. Denies history of atrial fibrillation. The symptoms of chest pains , shortness of breath, dizziness or palpitations. EKG reveals sinus mechanism with no acute ST or T-wave abnormalities or arrhythmia noted. Chest x-ray and admission negative for an acute cardiopulmonary process. Laboratory data reviewed, hemoglobin 12.8, platelets 197, sodium 142, potassium 3.9, creatinine 1.16. Current daily medications include lisinopril 10 mg daily, Lopressor 50 mg twice a day and pravastatin 20 mg daily. He also takes Risperdal, Keppra pantoprazole and Motrin. At the time of my exam: CONSTITUTIONAL: Denies fever. Denies chills. EYES: Denies blurred vision. Denies vision changes. Denies eye pain. EARS, NOSE, MOUTH & THROAT: Denies headache. Denies sore throat. Denies ear pain. CARDIOVASCULAR: Denies chest pain. Denies shortness of breath. Denies orthopnea. Denies PND. Denies palpitations. RESPIRATORY: Denies cough. GASTROINTESTINAL: Denies abdominal pain. Denies diarrhea. Denies constipation. Denies nausea. Denies vomiting. MUSCULOSKELETAL: Denies myalgias. INTEGUMENTARY: Denies pruitis. Denies rash. NEUROLOGIC: Denies numbness. Denies tingling. Denies weakness. PSYCHIATRIC: Denies anxiety. Denies depression. ENDOCRINE: Denies fatigue. Denies weight change. Denies polydipsia. Denies polyurina. GENITOURINARY: Denies burning, hematuria or urgency with micturation. HEMATOLOGIC: Denies history of anemia. Denies bleeding. Blood pressure 113/66 heart rate 70 afebrile maintaining oxygen saturation on room air GENERAL: This is a 57-year-old patient male in no apparent distress at the time of my examination. HEENT: Head is atraumatic, normocephalic. Pupils are equal, round. Sclerae anicteric. Conjunctivae are clear. Mucous membranes of the mouth are moist. Neck is supple. There is no jugular venous distention. No carotid bruit is heard. LUNGS: Clear to auscultation no wheezes, rales or rhonchi. No chest wall tenderness is noted on palpation or with deep breathing. HEART: Regular rate and rhythm without murmurs, rubs or gallops. S1 and S2 heard. ABDOMEN: Soft, nontender. Bowel sounds are heard. No organomegaly noted. EXTREMITIES: No evidence of peripheral edema and no calf tenderness noted. VASCULAR: Radial and dorsalis pedis pulses palpated, no evidence of clubbing. NEUROLOGIC: Patient is lethargic, but does wake up when prompted. ASSESSMENT TIA History of CVA Metabolic encephalopathy History of seizure disorder Hypertension PLAN As requested will schedule him for a HODAN tomorrow. Nothing by mouth after midnight tonight. Thank you kindly for this consultation. Nurse Practitioner note has been reviewed, I agree with a documented findings and plan of care. Patient was seen and examined. Past Medical History Past Medical History: CVA/TIA, GERD/Reflux, Hypertension, Seizure Disorder Additional Past Medical History / Comment(s): ) History of Any Multi-Drug Resistant Organisms: None Reported Past Surgical History: Appendectomy, Cholecystectomy, Orthopedic Surgery Additional Past Surgical History / Comment(s): rt shoulder surgery(plate/screws) , epidural inj to back, egd Past Anesthesia/Blood Transfusion Reactions: No Reported Reaction Smoking Status: Current every day smoker - Past Family History Mother Family Medical History: Hypertension Additional Family Medical History / Comment(s): heart problems Father History Unknown: Yes Medications and Allergies Home Medications Medication Instructions Recorded Confirmed Type Pantoprazole Sodium 40 mg PO BID 06/12/15 01/29/18 History risperiDONE [RisperDAL] 0.5 mg PO DAILY 06/12/15 01/29/18 History Ibuprofen [Motrin] 800 mg PO TID PRN 06/13/17 01/29/18 History risperiDONE [RisperDAL] 1 mg PO HS 06/13/17 01/29/18 History Lisinopril [Zestril] 10 mg PO DAILY #30 tab 06/16/17 01/29/18 Rx levETIRAcetam [Keppra] 750 mg PO Q12HR #60 tab 06/16/17 01/29/18 Rx Ergocalciferol [Vitamin D2] 50,000 unit PO Q7D 01/29/18 01/29/18 History Metoprolol Tartrate [Lopressor] 50 mg PO BID 01/29/18 01/29/18 History Pravastatin Sodium [Pravachol] 20 mg PO HS 01/29/18 01/29/18 History Allergies Allergy/AdvReac Type Severity Reaction Status Date / Time No Known Allergies Allergy Verified 01/29/18 12:43 Physical Exam Vitals: Vital Signs Temp Pulse Resp BP Pulse Ox 01/31/18 08:00 96.8 F L 78 14 113/66 94 L 01/31/18 04:00 97.2 F L 56 L 18 105/68 94 L 01/30/18 23:20 98.2 F 58 L 18 110/69 95 01/30/18 19:30 97.1 F L 64 18 117/75 94 L 01/30/18 16:00 96.0 F L 82 16 131/76 91 L 01/30/18 11:05 52 L 14 01/30/18 11:04 96.9 F L 52 L 14 159/82 95 Intake and Output 01/30/18 01/31/18 01/31/18 22:59 06:59 14:59 Intake Total 400 Output Total 450 400 Balance -50 -400 Intake: Oral 400 Output: Urine 450 400 Other: Weight 83.5 kg Results 01/31/18 06:27 01/31/18 06:27 CBC 01/31/18 Range/Units 06:27 WBC 7.4 (3.8-10.6) k/uL RBC 4.58 (4.30-5.90) m/uL Hgb 12.8 L (13.0-17.5) gm/dL Hct 39.5 (39.0-53.0) % Plt Count 197 (150-450) k/uL Comprehensive Metabolic Panel 01/31/18 Range/Units 06:27 Sodium 142 (137-145) mmol/L Potassium 3.9 (3.5-5.1) mmol/L Chloride 106 (98-107) mmol/L Carbon Dioxide 28 (22-30) mmol/L BUN 13 (9-20) mg/dL Creatinine 1.16 (0.66-1.25) mg/dL Glucose 87 (74-99) mg/dL Calcium 9.1 (8.4-10.2) mg/dL Current Medications Generic Name Dose Route Start Last Admin Trade Name Freq PRN Reason Stop Dose Admin Acetaminophen 500 mg 01/29/18 18:28 Tylenol Tab PO Q6HR PRN Fever and/ or Pain Hydrocodone Bitart/Acetaminophen 1 each 01/29/18 18:28 [place] 5-325 PO Q6HR PRN Pain Alprazolam 0.25 mg 01/29/18 18:28 Xanax PO TID PRN Anxiety Aspirin 325 mg 01/30/18 09:00 01/31/18 08:09 Aspirin PO 325 mg DAILY ZORA Administration Atorvastatin Calcium 20 mg 01/29/18 21:00 01/30/18 20:57 Lipitor PO 20 mg HS ZORA Administration Ergocalciferol 50,000 unit 02/05/18 12:00 Vitamin D2 PO Q7D ZORA Fluoxetine HCl 20 mg 01/30/18 16:00 01/31/18 08:09 Prozac PO 20 mg DAILY ZORA Administration Folic Acid 1 mg 01/30/18 12:00 01/31/18 08:10 Folic Acid PO 1 mg DAILY@1200 ZORA Administration Heparin Sodium (Porcine) 5,000 unit 01/29/18 21:00 01/31/18 08:09 Heparin SQ 5,000 unit Q12HR ZORA Administration Ibuprofen 800 mg 01/29/18 18:27 Motrin PO TID PRN Pain Levetiracetam 750 mg 01/29/18 21:00 01/31/18 08:10 Keppra PO 750 mg Q12HR ZORA Administration Lisinopril 10 mg 01/30/18 09:00 01/31/18 08:09 Zestril PO 10 mg DAILY ZORA Administration Metoprolol Tartrate 50 mg 01/29/18 21:00 01/31/18 08:09 Lopressor PO 50 mg BID ZORA Administration Multivitamins 1 each 01/30/18 12:00 01/31/18 08:09 Theragran PO 1 each DAILY@1200 ZORA Administration Nicotine 1 patch 01/29/18 18:30 01/31/18 08:08 Habitrol 14mg/24hr Patch TRANSDERM 1 patch DAILY ZORA Administration Pantoprazole Sodium 40 mg 01/29/18 21:00 01/31/18 06:30 Protonix PO 40 mg AC-BID ZORA Administration Risperidone 1 mg 01/29/18 21:00 01/30/18 20:57 Risperdal PO 1 mg HS ZORA Administration Risperidone 0.5 mg 01/30/18 09:00 01/31/18 08:08 Risperdal PO 0.5 mg DAILY ZORA Administration Temazepam 15 mg 01/29/18 18:28 Restoril PO HS PRN Insomnia Thiamine HCl 100 mg 01/30/18 12:00 01/31/18 08:10 Vitamin B-1 PO 100 mg DAILY@1200 ZORA Administration Intake and Output 01/30/18 01/31/18 01/31/18 22:59 06:59 14:59 Intake Total 400 Output Total 450 400 Balance -50 -400 Intake: Oral 400 Output: Urine 450 400 Other: Weight 83.5 kg 01/31/18 06:27 01/31/18 06:27
[2018-01-31 11:40] LABS: Glucose,Whole Blood 99 mg/dL (75-99)
--- NOTE | 2018-01-31 13:13 | PN ---
PROGRESS NOTE HISTORY: Patient seen and interviewed, found still depressed and down. He did take the Prozac yesterday and tolerated it well. Reporting no side effects. He denies any nausea, vomiting, diarrhea. He still is concerned about his worsening health issues. He has had some anxiety. Denies any active suicidal or homicidal ideation. Denies hearing voices, seeing things. MENTAL STATUS EXAMINATION: The patient is alert, awake, oriented x4. Has poor eye contact. Speech few word sentences. Mood dysphoric with congruent affect. Denies suicidal ideation. I do not see him responding to internal stimuli. Insight and judgement improving slowing and gradually. ASSESSMENT: Major depressive disorder, recurrent, severe, without psychotic features. PLAN: Will continue with the Prozac 20 now and then titrate up accordingly. We will offer him individual and group counseling once he did gets discharged. Prescriptions were provided. Psychiatry will sign off. MMDARBY / ISSAN: [id number] /
[2018-01-31 16:38] LABS: Glucose,Whole Blood 105 mg/dL (75-99)
[2018-01-31 20:36] LABS: Glucose,Whole Blood 144 mg/dL (75-99)
[2018-01-31] MEDS: risperiDONE 1 MG TAB PO SCH (20:40)
[2018-01-31] MEDS: ATORVASTATIN 20 MG TAB PO SCH (20:40)
--- NOTE | 2018-01-31 21:05 | PN ---
PROGRESS NOTE DATE OF SERVICE: 01/31/2018. INTERVAL HISTORY: This 57-year-old gentleman who was admitted with dysarthria, possible acute left thalamic subacute stroke is slated to have a HODAN tomorrow by Cardiology. No chest pain. No palpitations. No fever. PHYSICAL EXAM: Alert and oriented x3. The pulse is 52, blood pressure 120/82, respiration 14, temperature 96.9, pulse ox 98% on room air. HEENT: Conjunctivae normal. Oral mucosa moist. Neck is no jugular venous distention. No carotid bruit. No lymph nodes enlargement. Cardiac systems: S1, S2. Respirations: Breath sounds diminished in the bases. No rhonchi. No crackles. ABDOMEN: Soft, nontender. Legs: No edema. No swelling. Central nervous system: Diffusely weak. LABS: CBC within normal limits. Hemoglobin 12.8. BMP normal. ASSESSMENT: 1. Dysarthria. Possible acute left thalamic subacute stroke. 2. Old lacunar infarct. 4. Chronic small-vessel disease and chronic ischemic changes on MRI scan. 5. History of multiple lacunar infarcts in the past. 6. Gait dysfunction secondary to stroke. 7. Sinus bradycardia. 8. History of cerebrovascular accident, transient ischemic attack. 9. Gastroesophageal reflux disease. 10.Hypertension. 11.History of seizure disorder. 12.History of migraine. 13.History of degenerative joint disease. 14.History of cholecystectomy. 15.History of depression. 16.History of continued ongoing nicotine dependence. RECOMMENDATIONS AND DISCUSSION: Recommend to continue current medications, continue to monitor. Symptomatic treatment. Continue with antiplatelet agents. Possible HODAN by Cardiology. Guarded prognosis because of multiple complex medical issues. Further recommendations to follow. MMODL / IJN: [id number] / DUSTIN
[2018-02-01 05:44] LABS: Glucose,Whole Blood 90 mg/dL (75-99)
[2018-02-01] MEDS: PANTOPRAZOLE 40 MG TABLET PO SCH ×2 (06:14→21:45)
[2018-02-01 07:06] LABS: Basophils % (A) 0 %; Eosinophils # (A) 0.1 k/uL (0-0.7); Eosinophils % (A) 1 %; HGB 12.2 gm/dL (13.0-17.5); Lymphocytes # (A) 2.4 k/uL (1.0-4.8); Lymphocytes % (A) 37 %; MCH 28.4 pg (25.0-35.0); MCHC 33.1 g/dL (31.0-37.0); Mean Platelet Volume 7.4; Monocytes # (A) 0.3 k/uL (0-1.0); Monocytes % (A) 4 %; Neutrophils # (A) 3.6 k/uL (1.3-7.7); Neutrophils % (A) 55 %; Platelet Count 201 k/uL (150-450); WBC 6.5 k/uL (3.8-10.6)
[2018-02-01] MEDS: ASPIRIN 325 MG TAB PO SCH (09:10)
[2018-02-01] MEDS: FLUoxetine HCL 20 MG CAP PO SCH (09:10)
[2018-02-01] MEDS: HEPARIN SODIUM,PORCINE 5,000 UNIT/ML 1 ML VIAL SQ SCH ×2 (09:11→21:03)
[2018-02-01] MEDS: NICOTINE 14MG/24HR PATCH TRANSDERM SCH (09:11)
[2018-02-01] MEDS: METOPROLOL TARTRATE 50 MG TAB PO SCH ×2 (09:11→21:03)
[2018-02-01] MEDS: risperiDONE 0.5 MG TAB PO SCH (09:11)
[2018-02-01] MEDS: LISINOPRIL 10 MG TAB PO SCH (09:11)
[2018-02-01 09:59] LABS: Anion Gap 9 mmol/L; Blood Urea Nitrogen 12 mg/dL (9-20); Calcium 8.8 mg/dL (8.4-10.2); Carbon Dioxide 25 mmol/L (22-30); Chloride 106 mmol/L (98-107); Glucose 83 mg/dL (74-99); Sodium 140 mmol/L (137-145)
[2018-02-01] MEDS ORDERED: MIDAZOLAM 2 MG/2 ML VIAL ONE (10:59)
[2018-02-01] MEDS ORDERED: fentaNYL (PF) 50 MCG/ML 2 ML AMP ONE (11:00)
[2018-02-01 11:29] LABS: Glucose,Whole Blood 106 mg/dL (75-99)
[2018-02-01] MEDS ORDERED: SODIUM CHLORIDE 0.9% 500 ML IV ONE (11:45)
[2018-02-01] MEDS: BENZOCAINE SPRAY 1 CAN TOPICAL ONE ×2 (11:47→12:00)
[2018-02-01] MEDS ORDERED: MIDAZOLAM 2 MG/2 ML VIAL IVP ONE (12:02)
[2018-02-01] MEDS ORDERED: fentaNYL (PF) 50 MCG/ML 2 ML AMP IVP ONE (12:02)
--- NOTE | 2018-02-01 12:30 | ECHOT ---
TRANSESOPHAGEAL ECHOCARDIOGRAM This transesophageal echocardiogram was performed to evaluate the patient for cardiac source of emboli. Patient was given intravenous sedation with Versed and fentanyl and transesophageal echocardiogram was performed without any complications. Left ventricular chamber is normal in size with mild degree of left ventricular hypertrophy and normal left ventricular systolic function. Left atrium is mildly enlarged. Mitral aortic and tricuspid valve morphology is normal. Left atrial appendage is normal. There is no evidence of any thrombus. There is no evidence of any smoke in the left atrium. There is no evidence of thrombus in the left ventricular apex. Interatrial septum is intact. There is no evidence of any PFO. Descending thoracic aorta is normal. FINAL IMPRESSION: 1. There is no definite evidence of any cardiac source of emboli. Left atrial appendage is normal. There is no evidence of thrombus or smoke. 2. Left ventricular systolic function is normal. Mild degree of left ventricular hypertrophy is noted. There is a mild mitral regurgitation noted. The interatrial septum is intact. There is no evidence of any patent foramen ovale. MMODL / IJN: [id number] /
[2018-02-01 16:33] LABS: Glucose,Whole Blood 92 mg/dL (75-99)
[2018-02-01] MEDS: MULTIVITAMINS, THERA 1 EACH TAB PO SCH (17:36)
[2018-02-01] MEDS: FOLIC ACID 1 MG TAB PO SCH (17:36)
[2018-02-01] MEDS: THIAMINE 100 MG TAB PO SCH (17:36)
--- NOTE | 2018-02-01 19:42 | PN ---
PROGRESS NOTE DATE OF SERVICE: 02/01/2018. INTERVAL HISTORY: This 57-year-old gentleman who was admitted with dysarthria, possible acute left thalamic subacute stroke, also had a HODAN today. The patient also failed swallowing today. No chest pain. No palpitations. No fever. HODAN done by Cardiology showed no evidence of any cardiac source of emboli and LV function was normal. No chest pain. No palpitations. No fever. PHYSICAL EXAM: Alert and oriented x3. Pulse is 53, blood pressure 115/75, respirations 16, temperature normal, pulse ox 98% on 2 L. HEENT is conjunctivae normal. Oral mucosa moist. Neck is no jugular venous distention. No carotid bruit. No lymph node enlargement. Cardiovascular: S1, S2 muffled. Respiratory: Breath sounds diminished in the bases. A few rhonchi. No crackles. ABDOMEN: Soft. Nontender. Legs are no edema. No swelling. Central nervous system: Diffusely weak. LAB STUDIES: Hemoglobin 12.2, Accu-Cheks noted. ASSESSMENT: 1. Dysarthria. Possible acute left thalamic subacute stroke, old lacunar infarct and multiple strokes in the past. 2. Chronic small ischemia and ischemic changes on the MRI scan. 3. Dysphagia with failed swallow test. 4. History of lacunar infarct in the past. 5. Gait dysfunction secondary to stroke. 6. Sinus bradycardia. 7. History of cerebrovascular accident, transient ischemic attack. 8. Gastroesophageal reflux disease. 9. Hypertension. 10.History of seizure disorder. 11.History of migraine. 12.History of degenerative joint disease. 13.History of cholecystectomy. 14.History of depression. 15.History of continued ongoing nicotine dependence. RECOMMENDATIONS AND DISCUSSION: Recommend to continue current medications, management and symptomatic treatment. Modified barium swallow tomorrow. PT/OT evaluation, possible ECF rehab versus home. Guarded prognosis. Further recommendations to follow. MMODL / IJN: [id number] /
[2018-02-01 21:00] LABS: Glucose,Whole Blood 89 mg/dL (75-99)
[2018-02-01] MEDS: ATORVASTATIN 20 MG TAB PO SCH (21:03)
[2018-02-01] MEDS: risperiDONE 1 MG TAB PO SCH (21:40)
[2018-02-01] MEDS: PANTOPRAZOLE 40 MG/10 ML VIAL IV SCH (21:40)
[2018-02-02 00:07] VITALS: RESP 18
[2018-02-02 06:09] LABS: Glucose,Whole Blood 91 mg/dL (75-99)
[2018-02-02 06:39] LABS: Basophils % (A) 0 %; Eosinophils # (A) 0.1 k/uL (0-0.7); Eosinophils % (A) 2 %; HCT 38.1 % (39.0-53.0); HGB 12.8 gm/dL (13.0-17.5); Lymphocytes # (A) 2.4 k/uL (1.0-4.8); Lymphocytes % (A) 42 %; MCH 28.6 pg (25.0-35.0); MCHC 33.6 g/dL (31.0-37.0); MCV 85.1 fL (80.0-100.0); Monocytes # (A) 0.3 k/uL (0-1.0); Monocytes % (A) 5 %; Neutrophils # (A) 2.8 k/uL (1.3-7.7); Neutrophils % (A) 49 %; Platelet Count 207 k/uL (150-450); RBC 4.47 m/uL (4.30-5.90); RDW 13.9 % (11.5-15.5); WBC 5.7 k/uL (3.8-10.6)
[2018-02-02 06:49] LABS: Anion Gap 9 mmol/L; Blood Urea Nitrogen 9 mg/dL (9-20); Calcium 9.1 mg/dL (8.4-10.2); Carbon Dioxide 24 mmol/L (22-30); Chloride 106 mmol/L (98-107); Glucose 79 mg/dL (74-99); Potassium 4.2 mmol/L (3.5-5.1); Sodium 139 mmol/L (137-145)
[2018-02-02] MEDS: HEPARIN SODIUM,PORCINE 5,000 UNIT/ML 1 ML VIAL SQ SCH ×2 (08:53→20:30)
[2018-02-02] MEDS: PANTOPRAZOLE 40 MG/10 ML VIAL IV SCH ×2 (08:54→20:29)
[2018-02-02] MEDS: NICOTINE 14MG/24HR PATCH TRANSDERM SCH (08:54)
[2018-02-02 11:09] LABS: Glucose,Whole Blood 89 mg/dL (75-99)
--- NOTE | 2018-02-02 14:05 | FL ---
MODIFIED SWALLOW / DEGLUTITION STUDY DATE OF EXAM: 02/02/2018 CLINICAL HISTORY: 57-year-old male Dysphagia. Patient with brainstem stroke and trouble swallowing. TECHNIQUE: Deglutition study is performed utilizing thin liquid barium, honey and nectar thick liqui d barium, barium thick applesauce, and barium coated cracker. Total fluoroscopy time: 2 minutes 24 seconds. Total images: None. Real-time fluoroscopy support was provided to speech pathology. COMPARISON: None. FINDINGS: Swallow initiation was delayed with bolus free spilling to the level of the vallecula. There is aspiration with thin liquids and penetration with nectar liquid. No other penetration or asp iration was seen. Mild pharyngeal residuals are noted. IMPRESSION: Aspiration with thin liquids and penetration with nectar liquids. Delayed swallow initiation. Mild re siduals. Please refer to speech therapist notes for further details if necessary.
[2018-02-02 16:39] LABS: Glucose,Whole Blood 126 mg/dL (75-99)
[2018-02-02] MEDS: ASPIRIN 325 MG TAB PO SCH (16:52)
[2018-02-02] MEDS: FLUoxetine HCL 20 MG CAP PO SCH (16:53)
[2018-02-02] MEDS: risperiDONE 0.5 MG TAB PO SCH (16:53)
[2018-02-02] MEDS: LISINOPRIL 10 MG TAB PO SCH (16:53)
[2018-02-02] MEDS: FOLIC ACID 1 MG TAB PO SCH (16:53)
[2018-02-02] MEDS: THIAMINE 100 MG TAB PO SCH (16:54)
[2018-02-02] MEDS: MULTIVITAMINS, THERA 1 EACH TAB PO SCH (16:54)
[2018-02-02] MEDS: METOPROLOL TARTRATE 50 MG TAB PO SCH (17:03)
[2018-02-02 20:29] LABS: Glucose,Whole Blood 114 mg/dL (75-99)
[2018-02-02] MEDS: METOPROLOL TARTRATE 25 MG TAB PO SCH (20:29)
[2018-02-02] MEDS: risperiDONE 1 MG TAB PO SCH (20:30)
[2018-02-02] MEDS: ATORVASTATIN 20 MG TAB PO SCH (20:30)
[2018-02-03 05:57] LABS: Glucose,Whole Blood 91 mg/dL (75-99)
[2018-02-03 07:25] LABS: Basophils % (A) 0 %; Eosinophils # (A) 0.2 k/uL (0-0.7); Eosinophils % (A) 2 %; HCT 40.4 % (39.0-53.0); HGB 12.9 gm/dL (13.0-17.5); Lymphocytes # (A) 2.3 k/uL (1.0-4.8); Lymphocytes % (A) 34 %; MCH 27.5 pg (25.0-35.0); Mean Platelet Volume 7.8; Monocytes # (A) 0.3 k/uL (0-1.0); Monocytes % (A) 5 %; Neutrophils # (A) 3.8 k/uL (1.3-7.7); Neutrophils % (A) 57 %; Platelet Count 197 k/uL (150-450); RBC 4.71 m/uL (4.30-5.90); WBC 6.6 k/uL (3.8-10.6)
[2018-02-03 07:41] LABS: Anion Gap 7 mmol/L; Blood Urea Nitrogen 9 mg/dL (9-20); Calcium 9.4 mg/dL (8.4-10.2); Carbon Dioxide 28 mmol/L (22-30); Chloride 106 mmol/L (98-107); Glucose 85 mg/dL (74-99); Potassium 4.2 mmol/L (3.5-5.1); Sodium 141 mmol/L (137-145)
[2018-02-03] MEDS: METOPROLOL TARTRATE 25 MG TAB PO SCH (09:11)
[2018-02-03] MEDS: NICOTINE 14MG/24HR PATCH TRANSDERM SCH (09:11)
[2018-02-03] MEDS: HEPARIN SODIUM,PORCINE 5,000 UNIT/ML 1 ML VIAL SQ SCH (09:11)
[2018-02-03] MEDS: FLUoxetine HCL 20 MG CAP PO SCH (09:11)
[2018-02-03] MEDS: ASPIRIN 325 MG TAB PO SCH (09:11)
[2018-02-03] MEDS: LISINOPRIL 10 MG TAB PO SCH (09:11)
[2018-02-03] MEDS: PANTOPRAZOLE 40 MG/10 ML VIAL IV SCH (09:12)
[2018-02-03] MEDS: risperiDONE 0.5 MG TAB PO SCH (09:12)
[2018-02-03 11:36] LABS: Glucose,Whole Blood 112 mg/dL (75-99)
[2018-02-03] MEDS ORDERED: LISINOPRIL 10 MG TAB PO STA (12:33)
[2018-02-03 12:43] VITALS: TEMP 96.2
[2018-02-03] MEDS: MULTIVITAMINS, THERA 1 EACH TAB PO SCH (12:52)
[2018-02-03] MEDS: THIAMINE 100 MG TAB PO SCH (12:52)
[2018-02-03] MEDS: FOLIC ACID 1 MG TAB PO SCH (12:52)
--- NOTE | 2018-02-03 14:49 | P.PN ---
Subjective Progress Note Date: 02/02/18 Progress note being dictated for Dr. Ye Interval history: Is a 57-year-old gentleman admitted with dysarthria, acute left dominant subacute stroke, sinus bradycardia and multiple other medical issues. completed HODAN, reporting no evidence of any cardiac source of emboli, normal LV function. Failed bedside swallow. Underwent modified barium swallow reporting aspiration with thin and nectar thick, delayed swallowing with mild residuals. Diet of chopped, nectar thick recommended as per speech therapy. Bradycardic, heart rate down into the 40s, beta dorothy decreased. Denies any chest pain, palpitations. Afebrile. Evaluated by psychiatry, regarding depression, Prozac added to med regime. Objective - Vital Signs Vital signs: Vital Signs Temp 96.3 F L 02/02/18 08:00 Pulse 46 L 02/02/18 08:00 Resp 18 02/02/18 04:00 BP 107/70 02/02/18 08:00 Pulse Ox 93 L 02/02/18 08:00 Intake & Output 02/01/18 02/02/18 02/02/18 18:59 06:59 18:59 Intake Total 100 10 Output Total 250 Balance -150 10 Weight 83.6 kg Intake: IV 100 10 0.9 10 Output: Urine 250 Other: Voiding Method Toilet Urinal # Voids 3 0 - Exam PHYSICAL EXAM: VITAL SIGNS: As above GENERAL: Sitting up in bed, no acute distress, mild dysarthria. HEENT: Conjunctivae normal. eyes normal. Oral mucosa moist NECK: No JVD. No thyroid enlargement. No LNs CARDIOVASCULAR: S1, S2 muffled. No murmur RESPIRATION: Breath sounds diminished in the bases. Occasional scattered rhonchi, no crackles. No bronchial breathing. ABDOMEN: Soft, nontender . No guarding. no masses palpable.Bowel sounds heard. LEGS: No edema. no swelling PSYCHIATRY: Alert and oriented -3, mood and affect normal. NERVOUS SYSTEM: Cranial N 2-12 grossly normal. Moves all 4 limbs. Diffuse weakness, No focal deficits. Mild dysarthria-baseline - Labs CBC & Chem 7: 02/03/18 07:10 02/03/18 07:10 Labs: Abnormal Lab Results - Last 24 Hours (Table) 02/01/18 02/02/18 Range/Units 11:27 05:48 Hgb 12.8 L (13.0-17.5) gm/dL Hct 38.1 L (39.0-53.0) % POC Glucose (mg/dL) 106 H (75-99) mg/dL Assessment and Plan Assessment: -Dysarthria, possible acute left pelvic subacute stroke, old lacunar infarct and multiple strokes in the past -Chronic small ischemia and ischemic changes per MRI -Dysphagia with failed swallow test, status post MBS reporting aspiration with thin and penetration with nectar thick, delayed swallowing, mild residuals. -Gait dysfunction secondary to stroke -Sinus bradycardia, beta dorothy decreased -Ongoing nicotine dependence Plan: Continue on current medication regime ,monitoring and symptomatic treatment. Strict aspiration precautions, diet as per speech therapy of chopped with nectar thick. Evaluated by PT/OT with home recommended at discharge. Continue monitoring overnight, beta dorothy decreased. Discharge planning in progress for tomorrow pending neurology clearance. The impression and plan of care has been dictated as directed. : I performed a history and examination of this patient, discussed the same with the dictator. I agree with the dictator's note ,documented as a scribe. Any additional findings or plans will be noted.
--- NOTE | 2018-02-03 15:00 | P.DS ---
Providers Date of admission: 01/30/18 11:01 Expected date of discharge: 02/03/18 Attending physician: Catarino Ye Consults: 01/29/18 15:55 Consult Physician Routine Consulting Provider: Karla Mcneil Consult Reason/Comments: slurred speech Do you want consulting provider notified?: Yes 01/30/18 09:00 Consult Physician Routine Consulting Provider: Anshul Carvalho Consult Reason/Comments: Patient with depression and confusion Do you want consulting provider notified?: Already Contacted 01/31/18 10:00 Consult Physician Urgent Consulting Provider: Mamadou Rogers Consult Reason/Comments: Acute cardioembolic stroke, needs HODAN procedure. Do you want consulting provider notified?: Yes Primary care physician: [facility] Course: Final Diagnoses: Dysarthria, possible acute left pelvic subacute stroke, old lacunar infarct and multiple strokes in the past -Chronic small ischemia and ischemic changes per MRI -Dysphagia with failed swallow test, status post MBS reporting aspiration with thin and penetration with nectar thick, delayed swallowing, mild residuals. -Gait dysfunction secondary to stroke -Sinus bradycardia, beta dorothy decreased -Ongoing nicotine dependence -Depression Hospital course:This Is a 57-year-old gentleman admitted with dysarthria, acute left dominant subacute stroke, sinus bradycardia and multiple other medical issues. completed HODAN, reporting no evidence of any cardiac source of emboli, normal LV function. Failed bedside swallow. Underwent modified barium swallow reporting aspiration with thin and nectar thick, delayed swallowing with mild residuals. Diet of chopped, nectar thick recommended as per speech therapy. Bradycardic, heart rate down into the 40s, beta dorothy decreased. Telemetry now sinus rhythm without bradycardia. Became hypertensive, JASIEL inhibitor dose increased as per cardiology. Significant clinical improvement. Denies any chest pain, palpitations. Afebrile. Evaluated by psychiatry, regarding depression, Prozac added to med regime. Cleared by all consults for discharge. Patient is being discharged home in a stable condition with guarded prognosis. EXAM: GENERAL:no acute distress, mild dysarthria. CARDIOVASCULAR: S1, S2 muffled. No murmur RESPIRATION: Breath sounds diminished in the bases. Occasional scattered rhonchi, no crackles. ABDOMEN: Soft, nontender .Bowel sounds heard. PSYCHIATRY: Alert and oriented -3, mood and affect normal. NERVOUS SYSTEM: Cranial N 2-12 grossly normal. Diffuse weakness, No focal deficits. Mild dysarthria. The impression and plan of care has been dictated as directed. : I performed a history and examination of this patient, discussed the same with the dictator. I agree with the dictator's note ,documented as a scribe. Any additional findings or plans will be noted. Time taken: 35 minutes Patient Condition at Discharge: Stable Plan - Discharge Summary Discharge Rx Participant: No New Discharge Prescriptions: New Folic Acid 1 mg PO DAILY@1200 #30 tab Metoprolol Tartrate [Lopressor] 25 mg PO BID #60 tab Multivitamins, Thera [Multivitamin (formulary)] 1 each PO DAILY@1200 #30 tab Nicotine 14Mg/24Hr Patch [Habitrol] 1 patch TRANSDERM DAILY #30 patch Thiamine [Vitamin B-1] 100 mg PO DAILY@1200 #30 tab Aspirin EC [Ecotrin Low Dose] 81 mg PO DAILY #30 tablet. FLUoxetine HCL [PROzac] 20 mg PO DAILY #30 cap Lisinopril [Zestril] 20 mg PO DAILY #30 tab Continue risperiDONE [RisperDAL] 0.5 mg PO DAILY Pantoprazole Sodium 40 mg PO BID risperiDONE [RisperDAL] 1 mg PO HS Ibuprofen [Motrin] 800 mg PO TID PRN PRN Reason: Pain levETIRAcetam [Keppra] 750 mg PO Q12HR #60 tab Ergocalciferol [Vitamin D2 (DRISDOL)] 50,000 unit PO Q7D Pravastatin Sodium [Pravachol] 20 mg PO HS Discontinued Lisinopril [Zestril] 10 mg PO DAILY #30 tab Metoprolol Tartrate [Lopressor] 50 mg PO BID Discharge Medication List Pantoprazole Sodium 40 mg PO BID 06/12/15 [History] risperiDONE [RisperDAL] 0.5 mg PO DAILY 06/12/15 [History] Ibuprofen [Motrin] 800 mg PO TID PRN 06/13/17 [History] risperiDONE [RisperDAL] 1 mg PO HS 06/13/17 [History] levETIRAcetam [Keppra] 750 mg PO Q12HR #60 tab 06/16/17 [Rx] Ergocalciferol [Vitamin D2 (DRISDOL)] 50,000 unit PO Q7D 01/29/18 [History] Pravastatin Sodium [Pravachol] 20 mg PO HS 01/29/18 [History] Aspirin EC [Ecotrin Low Dose] 81 mg PO DAILY #30 tablet. 02/03/18 [Rx] FLUoxetine HCL [PROzac] 20 mg PO DAILY #30 cap 02/03/18 [Rx] Folic Acid 1 mg PO DAILY@1200 #30 tab 02/03/18 [Rx] Lisinopril [Zestril] 20 mg PO DAILY #30 tab 02/03/18 [Rx] Metoprolol Tartrate [Lopressor] 25 mg PO BID #60 tab 02/03/18 [Rx] Multivitamins, Thera [Multivitamin (formulary)] 1 each PO DAILY@1200 #30 tab [Rx] Nicotine 14Mg/24Hr Patch [Habitrol] 1 patch TRANSDERM DAILY #30 patch 02/03/18 [ Rx] Thiamine [Vitamin B-1] 100 mg PO DAILY@1200 #30 tab 02/03/18 [Rx] Follow up Appointment(s)/Referral(s): [facility] [Outside] - 1 Week ([facility], please call to make follow up appointment upon discharge for individual and group counciling.) Mamadou Rogers MD [STAFF PHYSICIAN] - 02/24/18 3:15 pm Esther Mcneil MD [STAFF PHYSICIAN] - As Needed (Office will call with follow up appointment.) [facility], [NON-STAFF] - Rosanne Mari MD [Primary Care Provider] - 02/12/18 1:30 pm Ambulatory/Diagnostic Orders: Complete Blood Count w/diff [LAB.AMB] Time Frame: 3 Days, Location: None Selected Patient Instructions/Handouts: Transesophageal Echocardiogram (DC), Hypertension (DC), Effects of a Stroke (DC) Activity/Diet/Wound Care/Special Instructions: Pending final dc rec. & clerance from neurology Needs walker - awaiting script from doctor Diet: chopped with [place] thick, Strict aspiration Precautions OP Speech therapy top be arranged by case management
[2018-02-03 15:09] VITALS: BP 136/86; PULSE 67
[2018-02-03] MEDS ORDERED: PANTOPRAZOLE 40 MG TABLET PO SCH (17:30)
[2018-02-04] MEDS ORDERED: LISINOPRIL 20 MG TAB PO SCH (09:00)
[2018-02-05] MEDS ORDERED: ERGOCALCIFEROL 50,000 UNIT CAP PO SCH (12:00)
== END 2018-02-03 17:12 | disposition home health service (06) | DRG 64 ==
LOC: EC 12:21 → 6SEL 16:08 → OBSVTOIN 01-30 11:01
PROVIDERS: ADMIT Hospitalist; ATTEND Hospitalist
PROC: B245ZZ4 Ultrasonography of Left Heart, Transesophageal (ICD-10-PCS; principal; 2018-02-01 11:30)
DX: I63.40 Cerebral infarction due to embolism of unspecified cerebral artery (principal); G93.41 Metabolic encephalopathy; F33.2 Major depressive disorder, recurrent severe without psychotic features; G40.919 Epilepsy, unspecified, intractable, without status epilepticus; F17.200 Nicotine dependence, unspecified, uncomplicated; I10 Essential (primary) hypertension; K21.9 Gastro-esophageal reflux disease without esophagitis; R13.10 Dysphagia, unspecified; Z79.899 Other long term (current) drug therapy; Z82.49 Family history of ischemic heart disease and other diseases of the circulatory system; R47.1 Dysarthria and anarthria; R26.9 Unspecified abnormalities of gait and mobility; R00.1 Bradycardia, unspecified; Z87.820 Personal history of traumatic brain injury; M19.90 Unspecified osteoarthritis, unspecified site
CPT/HCPCS: 36415; 70450; 70551; 71046; 74230; 80048; 80053; 80061; 80177; 80306; 81003; 82550; 82553; 84484; 85025; 85610; 85730; 93005; 93306; 93312; 93320; 93325; 93880; 95816; 99285

== ENCOUNTER 2018-02-09 23:14 | Inpatient (IN) | payer OTHER ==
[2018-02-09] MEDS ORDERED: SODIUM CHLORIDE 0.9% 1,000 ML IV STA (23:19)
--- NOTE | 2018-02-09 23:34 | ED ---
Seizure HPI <Alexsandra Modi M - Last Filed: 02/10/18 02:57> - History of Present Illness MD Complaint: seizure <Tamara Wise - Last Filed: 02/10/18 06:04> - General Stated Complaint: Seizure Time Seen by Provider: 02/09/18 23:18 - History of Present Illness Initial Comments: Patel is a 57-year-old male with past medical history of seizure disorder for which he takes Keppra 750 twice a day who presents the emergency department today for evaluation of seizure. Upon initial evaluation the patient is postictal and unable to answer questions. Family arrived at bedside to provide further answers. Family reports that patient has been in his usual state of health, he has been compliant with his medications so he had not taken his evening dose of Keppra today. They report that he got up to walk and subsequent a had a seizure and was found face down, noted to have a laceration to his left cheek. Seizure lasted for a couple of minutes, 911 was called, upon arrival of EMS the patient was postictal, they did not administer any medications transported to the emergency department for evaluation of seizure and facial trauma. States that the patient's most recent seizure was a couple of months ago which time his primary care physician increased his Keppra dosing to the 750 twice a day. Patient has not seen a neurologist in some time, they're not certain who his previous neurologist was. They report that his seizures are managed by his primary care physician who was previously Dr. Scherer and he is now seeing a new primary care physician Dr. Mari (Tamara Wise) - Related Data Home Medications Medication Instructions Recorded Confirmed Pantoprazole Sodium 40 mg PO BID 06/12/15 02/09/18 risperiDONE [RisperDAL] 0.5 mg PO DAILY 06/12/15 02/09/18 Ibuprofen [Motrin] 800 mg PO TID PRN 06/13/17 02/09/18 risperiDONE [RisperDAL] 1 mg PO HS 06/13/17 02/09/18 Ergocalciferol [Vitamin D2 50,000 unit PO Q7D 01/29/18 02/09/18 (DRISDOL)] Pravastatin Sodium [Pravachol] 20 mg PO HS 01/29/18 02/09/18 Multivitamins, Thera [Multivitamin 1 tab PO DAILY@1200 02/09/18 02/09/18 (formulary)] Previous Rx's Medication Instructions Recorded levETIRAcetam [Keppra] 750 mg PO Q12HR #60 tab 06/16/17 Aspirin EC [Ecotrin Low Dose] 81 mg PO DAILY #30 tablet. 02/03/18 FLUoxetine HCL [PROzac] 20 mg PO DAILY #30 cap 02/03/18 Folic Acid 1 mg PO DAILY@1200 #30 tab 02/03/18 Lisinopril [Zestril] 20 mg PO DAILY #30 tab 02/03/18 Metoprolol Tartrate [Lopressor] 25 mg PO BID #60 tab 02/03/18 Nicotine 14Mg/24Hr Patch [Habitrol] 1 patch TRANSDERM DAILY #30 patch 02/03/18 Thiamine [Vitamin B-1] 100 mg PO DAILY@1200 #30 tab 02/03/18 Allergies Allergy/AdvReac Type Severity Reaction Status Date / Time No Known Allergies Allergy Verified 02/09/18 23:35 Review of Systems ROS Other: All systems not noted in ROS Statement are negative. <Alexsandra Modi - Last Filed: 02/10/18 02:57> ROS Other: All systems not noted in ROS Statement are negative. Limitations: ROS unobtainable due to patients medical condition (Patient postictal) <Tamara Wise - Last Filed: 02/10/18 06:04> ROS Statement: Those systems with pertinent positive or pertinent negative responses have been documented in the HPI. Past Medical History Past Medical History: CVA/TIA, GERD/Reflux, Hypertension, Seizure Disorder Additional Past Medical History / Comment(s): ) History of Any Multi-Drug Resistant Organisms: None Reported Past Surgical History: Appendectomy, Cholecystectomy, Orthopedic Surgery Additional Past Surgical History / Comment(s): rt shoulder surgery(plate/screws) , epidural inj to back, egd Past Anesthesia/Blood Transfusion Reactions: No Reported Reaction Smoking Status: Current every day smoker - Past Family History Mother Family Medical History: Hypertension Additional Family Medical History / Comment(s): heart problems Father History Unknown: Yes <Tamara Wise - Last Filed: 02/10/18 06:04> General Exam <Alexsandra Modi - Last Filed: 02/10/18 02:57> <Tamara Wise P - Last Filed: 02/10/18 06:04> - General Exam Comments Initial Comments: GENERAL: Patient confused, postictal, abrasion to left cheek, laceration of left cheek HENT: Abrasion to left side of face, laceration left cheek with a flap noted Edentulous EYES: The sclera were anicteric and conjunctiva were pink and moist. Extraocular movements were intact and pupils were equal round and reactive to light. Eyelids were unremarkable. PULMONARY: Unlabored respirations. Good breath sounds bilaterally. No audible rales rhonchi or wheezing was noted. CARDIOVASCULAR: There is a regular rate and rhythm without any murmurs gallops or rubs. ABDOMEN: Soft and nontender with normal bowel sounds. SKIN: Skin is clear with no lesions or rashes and otherwise unremarkable. NEUROLOGIC: Alert and oriented to self, aware that he is in a hospital, otherwise confused Cranial nerves II through XII grossly intact Moving bilateral upper and lower extremities spontaneously No seizure activity noted in the emergency department MUSCULOSKELETAL: Normal extremities with adequate strength and full range of motion. No lower extremity swelling or edema. No calf tenderness. LYMPHATICS: No significant lymphadenopathy is noted PSYCHIATRIC: Postictal Limitations: no limitations (Tamara Wise) Vital Signs 02/09/18 02/10/18 23:40 01:40 Temperature 97.4 F L 97.5 F L Pulse Rate 82 73 Respiratory 16 16 Rate Blood Pressure 159/93 178/91 O2 Sat by Pulse 93 L 98 Oximetry Procedures - Laceration Laceration #1 Indication: laceration Site: face Size (cm): 3 Description: flap Depth: simple, single layer Pre-repair: irrigated extensively Type of Sutures: other (exofin skin adhesive) Patient Tolerated Procedure: well, no complications <Alexsandra Modi - Last Filed: 02/10/18 02:57> Medical Decision Making - Lab Data Result diagrams: 02/10/18 00:18 02/10/18 00:18 <Alexsandra Modi - Last Filed: 02/10/18 02:57> - Lab Data Result diagrams: 02/10/18 00:18 02/10/18 00:18 <Tamara Wise - Last Filed: 02/10/18 06:04> - Medical Decision Making The patient was seen and evaluated, history was obtained from EMS and the patient's family patient with a seizure history, was a couple hours late taking his evening Keppra had a witnessed seizure with tonic-clonic activity, struck his head on the ground consciousness no complaints of headache Labs and imaging were ordered Imaging with no acute injuries aside from soft tissue swelling of the face Labs reviewed IV Keppra, tetanus ordered Flap on the left cheek was repaired with glue Patient admitted with a consult to neurology placed as the patient has not seen neurology in a number of years per the family and patient cannot recall if he has seen a neurologist (Tamara Wise) - Lab Data Lab Results 02/10/18 02/10/18 02/10/18 Range/Units 00:18 00:18 00:18 WBC 8.8 (3.8-10.6) k/uL RBC 4.53 (4.30-5.90) m/uL Hgb 12.9 L (13.0-17.5) gm/dL Hct 39.6 (39.0-53.0) % MCV 87.4 (80.0-100.0) fL MCH 28.4 (25.0-35.0) pg MCHC 32.5 (31.0-37.0) g/dL RDW 14.1 (11.5-15.5) % Plt Count 250 (150-450) k/uL Neutrophils % 72 % Lymphocytes % 20 % Monocytes % 5 % Eosinophils % 2 % Basophils % 0 % Neutrophils # 6.3 (1.3-7.7) k/uL Lymphocytes # 1.7 (1.0-4.8) k/uL Monocytes # 0.4 (0-1.0) k/uL Eosinophils # 0.2 (0-0.7) k/uL Basophils # 0.0 (0-0.2) k/uL Manual Slide Review Performed PT (9.0-12.0) sec INR (<1.2) APTT (22.0-30.0) sec Sodium 140 (137-145) mmol/L Potassium 4.4 (3.5-5.1) mmol/L Chloride 106 (98-107) mmol/L Carbon Dioxide 22 (22-30) mmol/L Anion Gap 12 mmol/L BUN 11 (9-20) mg/dL Creatinine 0.96 (0.66-1.25) mg/dL Est GFR (CKD-EPI)AfAm >90 (>60 ml/min/1.73 sqM) Est GFR (CKD-EPI)NonAf 89 (>60 ml/min/1.73 sqM) Glucose 86 (74-99) mg/dL Lactic Ac Sepsis Rflx Plasma Lactic Acid Sergey (0.7-2.0) mmol/L Calcium 9.4 (8.4-10.2) mg/dL Total Bilirubin 0.3 (0.2-1.3) mg/dL AST 31 (17-59) U/L ALT 54 (21-72) U/L Alkaline Phosphatase 104 (38-126) U/L Total Creatine Kinase 67 (55-170) U/L CK-MB (CK-2) 0.6 (0.0-2.4) ng/mL CK-MB (CK-2) Rel Index 0.9 Troponin I 0.060 H* (0.000-0.034) ng/mL Total Protein 7.0 (6.3-8.2) g/dL Albumin 4.0 (3.5-5.0) g/dL Serum Alcohol <10 mg/dL Blood Type Blood Type Recheck Antibody Screen Spec Expiration Date 02/10/18 02/10/18 02/10/18 Range/Units 00:18 00:18 00:18 WBC (3.8-10.6) k/uL RBC (4.30-5.90) m/uL Hgb (13.0-17.5) gm/dL Hct (39.0-53.0) % MCV (80.0-100.0) fL MCH (25.0-35.0) pg MCHC (31.0-37.0) g/dL RDW (11.5-15.5) % Plt Count (150-450) k/uL Neutrophils % % Lymphocytes % % Monocytes % % Eosinophils % % Basophils % % Neutrophils # (1.3-7.7) k/uL Lymphocytes # (1.0-4.8) k/uL Monocytes # (0-1.0) k/uL Eosinophils # (0-0.7) k/uL Basophils # (0-0.2) k/uL Manual Slide Review PT 10.2 (9.0-12.0) sec INR 1.0 (<1.2) APTT 19.1 L (22.0-30.0) sec Sodium (137-145) mmol/L Potassium (3.5-5.1) mmol/L Chloride (98-107) mmol/L Carbon Dioxide (22-30) mmol/L Anion Gap mmol/L BUN (9-20) mg/dL Creatinine (0.66-1.25) mg/dL Est GFR (CKD-EPI)AfAm (>60 ml/min/1.73 sqM) Est GFR (CKD-EPI)NonAf (>60 ml/min/1.73 sqM) Glucose (74-99) mg/dL Lactic Ac Sepsis Rflx Plasma Lactic Acid Sergey 3.5 H* (0.7-2.0) mmol/L Calcium (8.4-10.2) mg/dL Total Bilirubin (0.2-1.3) mg/dL AST (17-59) U/L ALT (21-72) U/L Alkaline Phosphatase (38-126) U/L Total Creatine Kinase (55-170) U/L CK-MB (CK-2) (0.0-2.4) ng/mL CK-MB (CK-2) Rel Index Troponin I (0.000-0.034) ng/mL Total Protein (6.3-8.2) g/dL Albumin (3.5-5.0) g/dL Serum Alcohol mg/dL Blood Type A Positive Blood Type Recheck CABO Indicated Antibody Screen NEGATIVE Spec Expiration Date 02/13/2018 - 231702/10/18 Range/Units 00:45 WBC (3.8-10.6) k/uL RBC (4.30-5.90) m/uL Hgb (13.0-17.5) gm/dL Hct (39.0-53.0) % MCV (80.0-100.0) fL MCH (25.0-35.0) pg MCHC (31.0-37.0) g/dL RDW (11.5-15.5) % Plt Count (150-450) k/uL Neutrophils % % Lymphocytes % % Monocytes % % Eosinophils % % Basophils % % Neutrophils # (1.3-7.7) k/uL Lymphocytes # (1.0-4.8) k/uL Monocytes # (0-1.0) k/uL Eosinophils # (0-0.7) k/uL Basophils # (0-0.2) k/uL Manual Slide Review PT (9.0-12.0) sec INR (<1.2) APTT (22.0-30.0) sec Sodium (137-145) mmol/L Potassium (3.5-5.1) mmol/L Chloride (98-107) mmol/L Carbon Dioxide (22-30) mmol/L Anion Gap mmol/L BUN (9-20) mg/dL Creatinine (0.66-1.25) mg/dL Est GFR (CKD-EPI)AfAm (>60 ml/min/1.73 sqM) Est GFR (CKD-EPI)NonAf (>60 ml/min/1.73 sqM) Glucose (74-99) mg/dL Lactic Ac Sepsis Rflx Y Plasma Lactic Acid Sergey (0.7-2.0) mmol/L Calcium (8.4-10.2) mg/dL Total Bilirubin (0.2-1.3) mg/dL AST (17-59) U/L ALT (21-72) U/L Alkaline Phosphatase (38-126) U/L Total Creatine Kinase (55-170) U/L CK-MB (CK-2) (0.0-2.4) ng/mL CK-MB (CK-2) Rel Index Troponin I (0.000-0.034) ng/mL Total Protein (6.3-8.2) g/dL Albumin (3.5-5.0) g/dL Serum Alcohol mg/dL Blood Type Blood Type Recheck Antibody Screen Spec Expiration Date - EKG Data EKG Comments: EKG obtained at 2348, rate is 82, rhythm is sinus, normal axis, normal intervals , UT 170, QRS 98, QTC 474, no acute ST elevations or depressions no evidence of acute ischemia, infarction or arrhythmia. (Tamara Wise) Disposition <Alexsandra Modi M - Last Filed: 02/10/18 02:57> <Tamara Wise - Last Filed: 02/10/18 06:04> Clinical Impression: Generalized seizure, Laceration, Abrasion, face w/o infection, Closed head injury Disposition: ADMITTED IP TO THIS HOSP
--- NOTE | 2018-02-10 00:18 | CT ---
EXAMINATION TYPE: CT brain mauricioine wo con DATE OF EXAM: 02/10/2018 COMPARISON: CT brain 01/29/2018 HISTORY: Seizure; evaluate for trauma CT DLP: 1508.70 mGycm Automated exposure control for dose reduction was used. TECHNIQUE: CT scan of the head and cervical spine are performed without contrast. FINDINGS: There are multiple foci of decreased density in the internal capsule bilaterally. There i s no mass effect nor midline shift. There is no evidence of intracranial hemorrhage. There is mild ce rebral atrophy. The calvarium is intact. The cervical vertebra have normal spacing and alignment. Posterior elements are intact. Facet joints are intact. There is minor spurring of the endplates. Skull base is intact. IMPRESSION: Negative CT scan of the cervical spine. Cerebral atrophy. Multiple bilateral internal capsule lacunar infarcts. Left caudate nucleus old infa rct. No acute intracranial abnormality. No change compared to old exam.
--- NOTE | 2018-02-10 00:21 | CT ---
EXAMINATION TYPE: CT facial bones wo con DATE OF EXAM: 02/10/2018 COMPARISON: None HISTORY: seizure;evaluate for trauma CT DLP: 556.90 mGycm Automated exposure control for dose reduction was used. TECHNIQUE: CT scan of the sinuses is performed without contrast, axial images are obtained, coronal r eformatted images are also reviewed. FINDINGS: There is fairly normal development and aeration of the paranasal sinuses. There is bilatera l patency of the ostiomeatal complex. There is no evidence of blowout fracture. Orbital margins are i ntact. Mandibular ring is intact. Zygomatic arches appear normal. The maxilla is intact. There is min imal mucosal thickening at the floor of left maxillary sinus. There is no evidence of orbital mass. N ramandeep bone appears intact. There is minimal soft tissue swelling over the frontal bone bilaterally. IMPRESSION:. No evidence of traumatic injury in the facial bones. Minimal soft tissue swelling.
[2018-02-10 00:36] LABS: Basophils % (A) 0 %; Eosinophils # (A) 0.2 k/uL (0-0.7); Eosinophils % (A) 2 %; HCT 39.6 % (39.0-53.0); HGB 12.9 gm/dL (13.0-17.5); Lymphocytes # (A) 1.7 k/uL (1.0-4.8); Lymphocytes % (A) 20 %; MCH 28.4 pg (25.0-35.0); MCHC 32.5 g/dL (31.0-37.0); MCV 87.4 fL (80.0-100.0); Mean Platelet Volume 7.9; Monocytes # (A) 0.4 k/uL (0-1.0); Monocytes % (A) 5 %; Neutrophils # (A) 6.3 k/uL (1.3-7.7); Neutrophils % (A) 72 %; Platelet Count 250 k/uL (150-450); RBC 4.53 m/uL (4.30-5.90); RDW 14.1 % (11.5-15.5); WBC 8.8 k/uL (3.8-10.6)
[2018-02-10 00:43] LABS: ALT 54 U/L (21-72); AST 31 U/L (17-59); Alcohol <10 mg/dL; Alkaline Phosphatase 104 U/L (38-126); Anion Gap 12 mmol/L; Blood Urea Nitrogen 11 mg/dL (9-20); Calcium 9.4 mg/dL (8.4-10.2); Carbon Dioxide 22 mmol/L (22-30); Chloride 106 mmol/L (98-107); Glucose 86 mg/dL (74-99); Potassium 4.4 mmol/L (3.5-5.1); Sodium 140 mmol/L (137-145); Total Bilirubin 0.3 mg/dL (0.2-1.3)
[2018-02-10 00:50] LABS: Prothrombin Time 10.2 sec (9.0-12.0)
[2018-02-10 01:00] LABS: Partial Thromboplastin Time 19.1 sec (22.0-30.0)
[2018-02-10 01:06] LABS: Creatine Kinase MB 0.6 ng/mL (0.0-2.4)
[2018-02-10 01:12] LABS: Troponin I 0.06 ng/mL (0.000-0.034)
[2018-02-10] MEDS ORDERED: NALOXONE 0.4 MG/ML 1 ML VIAL IV PRN (01:24)
[2018-02-10] MEDS ORDERED: DIPH,PERTUS(ACELL)TETVAC-LF 0.5 ML VIAL IM ONE (01:31)
[2018-02-10] MEDS ORDERED: LIDOCAINE 1% INJ 10MG/ML (20 ML MDV) SQ ONE (01:31)
[2018-02-10] MEDS: SODIUM CHLORIDE 0.9% 1,000 ML IV SCH ×3 (01:49→21:01)
[2018-02-10] MEDS: levETIRAcetam IV 750 MG in SODIUM CHLORIDE 0.9% 100 ML IVPB SCH ×2 (02:11→10:47)
[2018-02-10] MEDS ORDERED: TOPICAL SKIN ADHESIVE 1 EACH AMP TOPICAL ONE (02:32)
[2018-02-10] MEDS ORDERED: METOPROLOL TARTRATE 25 MG TAB PO STA (02:58)
[2018-02-10] MEDS ORDERED: LISINOPRIL 10 MG TAB PO STA (02:58)
[2018-02-10] MEDS ORDERED: LORazepam 2 MG/ML INJ IV PRN (03:10)
[2018-02-10 03:50] VITALS: BMI 29.5
[2018-02-10] MEDS: PANTOPRAZOLE 40 MG TABLET PO SCH ×2 (06:15→17:08)
[2018-02-10] MEDS: NICOTINE 14MG/24HR PATCH TRANSDERM SCH (09:27)
[2018-02-10] MEDS: ASPIRIN 81 MG PO SCH (09:27)
[2018-02-10] MEDS: FOLIC ACID 1 MG TAB PO SCH (09:27)
[2018-02-10] MEDS: FLUoxetine HCL 20 MG CAP PO SCH (09:27)
[2018-02-10] MEDS: MULTIVITAMINS, THERA 1 EACH TAB PO SCH (09:28)
--- NOTE | 2018-02-10 12:43 | P.HPIM ---
History of Present Illness 57-year-old gentleman with known history of seizures in the past came in after he was found on the floor no loss of bowel or bladder continence. Patient is on Catapres and 50 twice a day at home Her levels are still pending. Patient was started on IV Keppra and neurology was consulted. Patient appears to have had a seizure patient apparently was post ictal last night and now patient is still lethargic remains to be postictal but not confused. There is no witnessed a tonic-clonic activity or tongue biting. Patient was recently hospitalized was evaluated for stroke and problems patient was found to have stroke. Patient had elevated lactic acid also elevated troponin denied any chest pain at this time both elevated lactic acid and troponin are secondary to seizure no fever or chills dysuria denied any headache. Review of Systems REVIEW OF SYSTEMS: CONSTITUTIONAL: No fever, no malaise, no fatigue. HEENT: No recent visual problems or hearing problems. Denied any sore throat. CARDIOVASCULAR: No chest pain, orthopnea, PND, no palpitations, no syncope. PULMONARY: No shortness of breath, no cough, no hemoptysis. GASTROINTESTINAL: No diarrhea, no nausea, no vomiting, no abdominal pain. Normoactive bowel sounds. NEUROLOGICAL: As mentioned above, no weakness no tingling numbness. HEMATOLOGICAL: Denies any bleeding or petechiae. GENITOURINARY: Denies any burning micturition, frequency, or urgency. MUSCULOSKELETAL/RHEUMATOLOGICAL: Denies any joint pain, swelling, or any muscle pain. ENDOCRINE: Denies any polyuria or polydipsia. The rest of the 14-point review of systems is negative. Past Medical History Past Medical History: CVA/TIA, GERD/Reflux, Hypertension, Seizure Disorder Additional Past Medical History / Comment(s): ) History of Any Multi-Drug Resistant Organisms: None Reported Past Surgical History: Appendectomy, Cholecystectomy, Orthopedic Surgery Additional Past Surgical History / Comment(s): rt shoulder surgery(plate/screws) , epidural inj to back, egd Past Anesthesia/Blood Transfusion Reactions: No Reported Reaction Smoking Status: Current every day smoker - Past Family History Mother Family Medical History: Hypertension Additional Family Medical History / Comment(s): heart problems Father History Unknown: Yes Medications and Allergies Home Medications Medication Instructions Recorded Confirmed Type Pantoprazole Sodium 40 mg PO BID 06/12/15 02/09/18 History risperiDONE [RisperDAL] 0.5 mg PO DAILY 06/12/15 02/09/18 History Ibuprofen [Motrin] 800 mg PO TID PRN 06/13/17 02/09/18 History risperiDONE [RisperDAL] 1 mg PO HS 06/13/17 02/09/18 History levETIRAcetam [Keppra] 750 mg PO Q12HR #60 tab 06/16/17 02/09/18 Rx Ergocalciferol [Vitamin D2 50,000 unit PO Q7D 01/29/18 02/09/18 History (DRISDOL)] Pravastatin Sodium [Pravachol] 20 mg PO HS 01/29/18 02/09/18 History Aspirin EC [Ecotrin Low Dose] 81 mg PO DAILY #30 tablet.dr 02/03/18 02/09/18 Rx FLUoxetine HCL [PROzac] 20 mg PO DAILY #30 cap 02/03/18 02/09/18 Rx Folic Acid 1 mg PO DAILY@1200 #30 tab 02/03/18 02/09/18 Rx Lisinopril [Zestril] 20 mg PO DAILY #30 tab 02/03/18 02/09/18 Rx Metoprolol Tartrate [Lopressor] 25 mg PO BID #60 tab 02/03/18 02/09/18 Rx Nicotine 14Mg/24Hr Patch [Habitrol] 1 patch TRANSDERM DAILY #30 patch 02/03/18 02/09/18 Rx Thiamine [Vitamin B-1] 100 mg PO DAILY@1200 #30 tab 02/03/18 02/09/18 Rx Multivitamins, Thera [Multivitamin 1 tab PO DAILY@1200 02/09/18 02/09/18 History (formulary)] Allergies Allergy/AdvReac Type Severity Reaction Status Date / Time No Known Allergies Allergy Verified 02/09/18 23:35 Physical Exam Vitals: Vital Signs Temp Pulse Pulse Resp BP BP Pulse Ox 02/10/18 04:00 74 18 02/10/18 03:42 97.0 F L 74 18 161/107 96 02/10/18 01:40 97.5 F L 73 16 178/91 98 02/09/18 23:40 97.4 F L 82 16 159/93 93 L Intake and Output 02/09/18 02/10/18 02/10/18 22:59 06:59 14:59 Intake Total 10 240 Balance 10 240 Intake: Intake, IV Titration 10 Amount Sodium Chloride 0.9% 1, 10 000 ml @ 100 mls/hr IV . Q10H [facility] Rx#:[id number] Oral 240 Other: Voiding Method Urinal Weight 90.5 kg PHYSICAL EXAMINATION: GENERAL: The patient is alert and oriented x3, not in any acute distress. Well developed, well nourished. Patient is lethargic still coming out of post ictal state HEENT: Pupils are round and equally reacting to light. EOMI. No scleral icterus. No conjunctival pallor. Normocephalic, atraumatic. No pharyngeal erythema. No thyromegaly. CARDIOVASCULAR: S1 and S2 present. No murmurs, rubs, or gallops. PULMONARY: Chest is clear to auscultation, no wheezing or crackles. ABDOMEN: Soft, nontender, nondistended, normoactive bowel sounds. No palpable organomegaly. MUSCULOSKELETAL: No joint swelling or deformity. EXTREMITIES: No cyanosis, clubbing, or pedal edema. NEUROLOGICAL: Gross neurological examination did not reveal any focal deficits. SKIN: No rashes. Results CBC & Chem 7: 02/10/18 00:18 02/10/18 00:18 Labs: Abnormal Lab Results - Last 24 Hours (Table) 02/10/18 02/10/18 02/10/18 Range/Units 00:18 00:18 00:18 Hgb 12.9 L (13.0-17.5) gm/dL APTT (22.0-30.0) sec Plasma Lactic Acid Sergey 3.5 H* (0.7-2.0) mmol/L Troponin I 0.060 H* (0.000-0.034) ng/mL 02/10/18 02/10/18 Range/Units 00:18 04:00 Hgb (13.0-17.5) gm/dL APTT 19.1 L (22.0-30.0) sec Plasma Lactic Acid Sergey (0.7-2.0) mmol/L Troponin I 0.291 H* (0.000-0.034) ng/mL Thrombosis Risk Factor Assmnt - Choose All That Apply Any of the Below Risk Factors Present?: Yes Each Factor Represents 1 point: Age 41-60 years Other Risk Factors: No Other congenital or acquired thrombophilia - If yes, enter type in comment: No Thrombosis Risk Factor Assessment Total Risk Factor Score: 1 Thrombosis Risk Factor Assessment Level: Low Risk Assessment and Plan Plan: -Breakthrough seizure Keppra levels are pending patient is on IV Keppra seizure precautions neurology was consulted -Lactic acidosis secondary to seizure continue with IV fluids -Mildly elevated troponin secondary to seizure no chest painsignificant EKG changes, will repeat another set of troponin first troponin is 0.06 second one is 0.291 -Recent CVA and TIA -Gases. Reflux disease -Hypertension, metoprolol will be continued will monitor the blood pressure need to be resumed on lisinopril tomorrow morning -Depression -Nicotine abuse: Counseling was provided For above-mentioned chronic medical problems patient will be resumed and continued on home medications
[2018-02-10 18:56] LABS: Appearance,Urine Clear (Clear); Bilirubin,Urine Negative (Negative); Blood,Urine Negative (Negative); Color,Urine Light Yellow; Glucose,Urine (UA) Negative (Negative); Ketones,Urine Negative (Negative); Leukocyte Esterase,Urine Negative (Negative); Nitrite,Urine Negative (Negative); PH, Urine 6.5 (5.0-8.0); Protein,Urine Negative (Negative); Urobilinogen,Urine <2.0 mg/dL (<2.0)
[2018-02-10 19:06] LABS: Amphetamine Screen,Urine Not Detected (NotDetected); Benzodiazepines Screen,Urine Detected (NotDetected); Cocaine Screen,Urine Not Detected (NotDetected); Opiate Screen,Urine Not Detected (NotDetected); Phencyclidine Screen,Urine Not Detected (NotDetected); Urn Cannabinoid Scrn Not Detected (NotDetected)
[2018-02-10 19:07] LABS: Barbiturate Screen,Urine Not Detected (NotDetected); Methadone Screen, Urine Not Detected (NotDetected); Oxycodone Screen, Urine Not Detected (NotDetected); Tricyclic Antidepressant,Urine Not Detected (NotDetected)
[2018-02-10] MEDS: levETIRAcetam 500 MG TAB PO SCH (21:01)
[2018-02-10] MEDS: METOPROLOL TARTRATE 25 MG TAB PO SCH (21:01)
[2018-02-11 08:11] VITALS: RESP 16
[2018-02-11] MEDS: levETIRAcetam 500 MG TAB PO SCH ×2 (08:14→20:57)
[2018-02-11] MEDS: METOPROLOL TARTRATE 25 MG TAB PO SCH ×2 (08:14→20:57)
[2018-02-11] MEDS: FLUoxetine HCL 20 MG CAP PO SCH (08:14)
[2018-02-11] MEDS: NICOTINE 14MG/24HR PATCH TRANSDERM SCH (08:14)
[2018-02-11] MEDS: ASPIRIN 81 MG PO SCH (08:15)
[2018-02-11] MEDS: PANTOPRAZOLE 40 MG TABLET PO SCH ×2 (08:15→17:37)
[2018-02-11] MEDS: SODIUM CHLORIDE 0.9% 1,000 ML IV SCH ×2 (08:37→17:38)
[2018-02-11 08:55] LABS: Basophils % (A) 0 %; Eosinophils # (A) 0.2 k/uL (0-0.7); Eosinophils % (A) 3 %; HCT 36.2 % (39.0-53.0); HGB 11.8 gm/dL (13.0-17.5); Lymphocytes # (A) 2.3 k/uL (1.0-4.8); Lymphocytes % (A) 38 %; MCH 28.1 pg (25.0-35.0); MCHC 32.7 g/dL (31.0-37.0); MCV 85.9 fL (80.0-100.0); Mean Platelet Volume 7.9; Monocytes # (A) 0.2 k/uL (0-1.0); Monocytes % (A) 4 %; Neutrophils # (A) 3.1 k/uL (1.3-7.7); Neutrophils % (A) 52 %; Platelet Count 247 k/uL (150-450); RBC 4.22 m/uL (4.30-5.90); RDW 13.9 % (11.5-15.5); WBC 5.9 k/uL (3.8-10.6)
[2018-02-11 09:05] LABS: ALT 41 U/L (21-72); AST 26 U/L (17-59); Albumin 3.1 g/dL (3.5-5.0); Alkaline Phosphatase 99 U/L (38-126); Anion Gap 8 mmol/L; Blood Urea Nitrogen 8 mg/dL (9-20); Calcium 8.8 mg/dL (8.4-10.2); Carbon Dioxide 26 mmol/L (22-30); Chloride 108 mmol/L (98-107); Glucose 81 mg/dL (74-99); Potassium 4.3 mmol/L (3.5-5.1); Sodium 142 mmol/L (137-145); Total Bilirubin 0.3 mg/dL (0.2-1.3); Total Protein 5.8 g/dL (6.3-8.2)
--- NOTE | 2018-02-11 09:42 | CONS ---
CONSULTATION DATE OF CONSULTATION: 02/10/2018 CHIEF COMPLAINT: Seizure. HISTORY OF PRESENT ILLNESS: Mr. Garsia is a 57-year-old, male, who is being evaluated today on 02/10/2018 by the neurology service per the request of Dr. Yu for seizures. The patient has history of seizure disorder and does take Keppra 750 mg p.o. b.i.d. at home. He states he has had seizures for several years and has been having occasional breakthrough seizures lately. The patient was brought into [facility] after he was found down on the ground with facial trauma. He appeared to be drowsy consistent with a postictal state. The patient does not recall what happened and states that he remembers being at home, and the next thing he remembers is being in the emergency room. He denies missing any Keppra doses. A CT scan of the brain was done, which showed old lacunar infarcts involving the right hand and left internal capsule and also involving the left caudate. He does have history of strokes and is on aspirin 81 mg daily at home. A CT scan of the facial bones were done and CT scan of the cervical spine was done all of which showed no evidence of any fractures. On arrival, his lactic acid level was elevated at 3.5, and it did normalize later to 1.2. His cardiac enzymes showed slightly elevated troponin at 0.291. His comprehensive metabolic profile and CBC were normal. The patient has not had any further seizure activity since his admission. PAST MEDICAL HISTORY: Strokes, seizure disorder, gastroesophageal reflux disease, hypertension, history of appendectomy, cholecystectomy, orthopedic surgeries. SOCIAL HISTORY: The patient is an every day smoker. He denied any alcohol or drug use. FAMILY HISTORY: Positive for heart disease and hypertension. HOME MEDICATIONS: Reviewed in the chart. ALLERGIES: No known drug allergies. REVIEW OF SYSTEMS: CONSTITUTIONAL: Positive for fatigue. EYES: Negative. ENT: Negative. CARDIOVASCULAR: Negative. RESPIRATORY: Positive for occasional shortness of breath. NEUROLOGICAL: As mentioned above. GASTROINTESTINAL: Positive for occasional heartburn. GENITOURINARY: Negative. PSYCHIATRIC: Negative. MUSCULOSKELETAL: Positive for occasional joint pain and low back pain. DERMATOLOGICAL: Negative. PHYSICAL EXAM: Vital signs show a temperature of 97, pulse 68, respiration 14, blood pressure 125/63. GENERAL APPEARANCE: The patient is a well-developed, male, who appears to be in no acute distress. HEENT: The patient does have lacerations on his left face along with some abrasions. No facial weakness is noticed. Neck is supple with no masses felt. CARDIOVASCULAR: Regular rate and rhythm. ABDOMEN: Nontender, nondistended. Extremities showed no edema or clubbing. NEUROLOGICAL EXAM: The patient is awake and oriented x3. Speech and language are normal. No lateralizing weakness is seen. Sensory exam was normal to light touch in all 4 extremities. No facial asymmetry seen on cranial nerve testing. No tremors or seizure-like activity is seen. IMPRESSION: 1. Uncontrolled seizures, generalized tonic-clonic type. 2. History of ischemic strokes. 3. Tobacco dependence. 4. Hypertension. RECOMMENDATION: The patient does appear to have suffered a breakthrough seizure although this was not witnessed. He has been having frequent breakthrough episodes as mentioned above. He is currently on Keppra 750 mg b.i.d. I did have a lengthy discussion with the patient regarding the plan of either increasing his Keppra or add a second antiepileptic medications. At this time, I will increase his Keppra to 1000 mg b.i.d. Possible side effects were discussed with the patient. If he continues to have breakthrough episodes, he will likely need a second antiepileptic medication started. An EEG has been ordered. Continue neuro checks and seizure precautions. As for his history of strokes, continue aspirin 81 mg daily. The patient was counseled on tobacco cessation. Continue the rest of your current workup and management. I will continue to follow with you. Further recommendations to follow. Thank you for allowing me to participate in the care of your patient. If you have any questions, please feel free to contact me. TIKI / ISSAN: [id number] /
[2018-02-11] MEDS ORDERED: ACETAMINOPHEN TAB 325 MG TAB PO PRN (12:29)
[2018-02-11] MEDS: MULTIVITAMINS, THERA 1 EACH TAB PO SCH (13:09)
[2018-02-11] MEDS: FOLIC ACID 1 MG TAB PO SCH (13:09)
--- NOTE | 2018-02-11 13:20 | P.DS ---
Providers Date of admission: 02/10/18 01:24 Attending physician: Catarino Yu Consults: 02/10/18 03:54 Consult Physician Routine Consulting Provider: Margo Mcneil Consult Reason/Comments: Seizures Do you want consulting provider notified?: Yes, Notify in am Primary care physician: [facility] Course: Patient was admitted for break through seizures and neurology evaluated the patient the recommending discharging the patient on increased dose of Keppra patient is feeling well and wanted to be discharged. PHYSICAL EXAMINATION: GENERAL: The patient is alert and oriented x3, not in any acute distress. Well developed, well nourished. HEENT: Pupils are round and equally reacting to light. EOMI. No scleral icterus. No conjunctival pallor. Normocephalic, atraumatic. No pharyngeal erythema. No thyromegaly. CARDIOVASCULAR: S1 and S2 present. No murmurs, rubs, or gallops. PULMONARY: Chest is clear to auscultation, no wheezing or crackles. ABDOMEN: Soft, nontender, nondistended, normoactive bowel sounds. No palpable organomegaly. MUSCULOSKELETAL: No joint swelling or deformity. EXTREMITIES: No cyanosis, clubbing, or pedal edema. NEUROLOGICAL: Gross neurological examination did not reveal any focal deficits. SKIN: No rashes. Assessment and Plan Plan: -Breakthrough seizure patient is being discharged on increased dose of Keppra -Lactic acidosis secondary to seizure improved with IV fluids -Mildly elevated troponin secondary to seizure no chest painsignificant EKG changes, -Gastroesophageal Reflux disease -Hypertension, metoprolol lisinopril dose was decreased because of hypotension -Depression -Nicotine abuse: Counseling was provided Plan - Discharge Summary Discharge Rx Participant: No New Discharge Prescriptions: New levETIRAcetam [Keppra] 1,000 mg PO Q12HR #60 tab Continue risperiDONE [RisperDAL] 0.5 mg PO DAILY Pantoprazole Sodium 40 mg PO BID risperiDONE [RisperDAL] 1 mg PO HS Ergocalciferol [Vitamin D2 (DRISDOL)] 50,000 unit PO Q7D Pravastatin Sodium [Pravachol] 20 mg PO HS Folic Acid 1 mg PO DAILY@1200 #30 tab Metoprolol Tartrate [Lopressor] 25 mg PO BID #60 tab Nicotine 14Mg/24Hr Patch [Habitrol] 1 patch TRANSDERM DAILY #30 patch Thiamine [Vitamin B-1] 100 mg PO DAILY@1200 #30 tab Aspirin EC [Ecotrin Low Dose] 81 mg PO DAILY #30 tablet. FLUoxetine HCL [PROzac] 20 mg PO DAILY #30 cap Multivitamins, Thera [Multivitamin (formulary)] 1 tab PO DAILY@1200 Changed Lisinopril [Zestril] 10 mg PO DAILY #30 tab Discontinued Ibuprofen [Motrin] 800 mg PO TID PRN PRN Reason: Pain levETIRAcetam [Keppra] 750 mg PO Q12HR #60 tab Discharge Medication List Pantoprazole Sodium 40 mg PO BID 06/12/15 [History] risperiDONE [RisperDAL] 0.5 mg PO DAILY 06/12/15 [History] risperiDONE [RisperDAL] 1 mg PO HS 06/13/17 [History] Ergocalciferol [Vitamin D2 (DRISDOL)] 50,000 unit PO Q7D 01/29/18 [History] Pravastatin Sodium [Pravachol] 20 mg PO HS 01/29/18 [History] Aspirin EC [Ecotrin Low Dose] 81 mg PO DAILY #30 tablet. 02/03/18 [Rx] FLUoxetine HCL [PROzac] 20 mg PO DAILY #30 cap 02/03/18 [Rx] Folic Acid 1 mg PO DAILY@1200 #30 tab 02/03/18 [Rx] Metoprolol Tartrate [Lopressor] 25 mg PO BID #60 tab 02/03/18 [Rx] Nicotine 14Mg/24Hr Patch [Habitrol] 1 patch TRANSDERM DAILY #30 patch 02/03/18 [ Rx] Thiamine [Vitamin B-1] 100 mg PO DAILY@1200 #30 tab 02/03/18 [Rx] Multivitamins, Thera [Multivitamin (formulary)] 1 tab PO DAILY@1200 02/09/18 [ History] Lisinopril [Zestril] 10 mg PO DAILY #30 tab 02/11/18 [Rx] levETIRAcetam [Keppra] 1,000 mg PO Q12HR #60 tab 02/11/18 [Rx] Follow up Appointment(s)/Referral(s): Rosanne Mari MD [Primary Care Provider] - 02/18/18 1:00 pm () Margo Mcneil MD [STAFF PHYSICIAN] - 3 Weeks Patient Instructions/Handouts: Epilepsy (DC) Discharge Disposition: HOME SELF-CARE
[2018-02-11 18:09] VITALS: BP 173/81; PULSE 59; TEMP 98.5
== END 2018-02-11 21:03 | disposition home or self-care (01) | DRG 101 ==
LOC: EC 23:14 → 6SEL 02-10 01:24 → 4MS4W 02-10 19:56
PROVIDERS: ADMIT Hospitalist; ATTEND Hospitalist
DX: G40.909 Epilepsy, unspecified, not intractable, without status epilepticus (principal); E87.2 Acidosis; F17.200 Nicotine dependence, unspecified, uncomplicated; F32.9 Major depressive disorder, single episode, unspecified; I10 Essential (primary) hypertension; K21.9 Gastro-esophageal reflux disease without esophagitis; S01.412A Laceration without foreign body of left cheek and temporomandibular area, initial encounter; Z79.82 Long term (current) use of aspirin; Z79.899 Other long term (current) drug therapy; Z82.49 Family history of ischemic heart disease and other diseases of the circulatory system; Z86.73 Personal history of transient ischemic attack (TIA), and cerebral infarction without residual deficits; W19.XXXA Unspecified fall, initial encounter; Z71.6 Tobacco abuse counseling; R74.8 Abnormal levels of other serum enzymes
CPT/HCPCS: 12013; 36415; 70450; 70486; 72125; 80053; 80177; 80306; 80320; 81003; 82550; 82553; 83605; 84484; 85025; 85610; 85730; 86850; 86900; 86901; 90471; 90715; 93005; 96361; 96365; 99285

== ENCOUNTER 2018-03-09 19:11 | Emergency (ER) | payer OTHER ==
[2018-03-09 19:21] VITALS: TEMP 99.5
[2018-03-09] MEDS ORDERED: LORazepam 2 MG/ML INJ IV STA (20:12)
[2018-03-09] MEDS ORDERED: SODIUM CHLORIDE 0.9% 1,000 ML IV STA (20:12)
[2018-03-09] MEDS ORDERED: levETIRAcetam IV 1,000 MG in SALINE 1 100ML.BAG IVPB STA (20:13)
[2018-03-09 20:39] LABS: Basophils % (A) 0 %; Eosinophils # (A) 0.1 k/uL (0-0.7); Eosinophils % (A) 2 %; HGB 13.2 gm/dL (13.0-17.5); Lymphocytes # (A) 2.1 k/uL (1.0-4.8); Lymphocytes % (A) 32 %; MCH 28.8 pg (25.0-35.0); MCHC 33.8 g/dL (31.0-37.0); MCV 85.1 fL (80.0-100.0); Mean Platelet Volume 7.2; Monocytes # (A) 0.3 k/uL (0-1.0); Monocytes % (A) 5 %; Neutrophils # (A) 3.7 k/uL (1.3-7.7); Neutrophils % (A) 58 %; Platelet Count 228 k/uL (150-450); RBC 4.58 m/uL (4.30-5.90); RDW 13.8 % (11.5-15.5); WBC 6.4 k/uL (3.8-10.6)
[2018-03-09 20:48] LABS: Albumin 3.9 g/dL (3.5-5.0); Calcium 9.4 mg/dL (8.4-10.2); Potassium 4.4 mmol/L (3.5-5.1); Total Bilirubin 0.3 mg/dL (0.2-1.3); Total Protein 6.9 g/dL (6.3-8.2)
[2018-03-09 21:06] VITALS: BP 145/86; PULSE 78; RESP 18
--- NOTE | 2018-03-09 21:15 | CT ---
EXAMINATION: CT brain wo con DATE AND TIME: 03/09/2018 8:45 PM CLINICAL INDICATION: seizure activity TECHNIQUE: Standard departmental protocol. COMPARISON: CT 02/10/2018 FINDINGS: The calvarium is intact. There is no intracranial hemorrhage. There is no intracranial mass or mass effect. No definite new intra-axial attenuation defect. Previously seen bilateral internal capsule focal encephalomalacia is unchanged. The paranasal sinuses, middle ear cavities, and mastoid sinus air cells are clear. The orbits are unremarkable. IMPRESSION: NO ACUTE PROCESS.
--- NOTE | 2018-03-09 21:45 | ED ---
Seizure HPI - General Chief Complaint: Seizure Stated Complaint: seizure Time Seen by Provider: 03/09/18 19:48 Source: patient, EMS Mode of arrival: EMS Limitations: no limitations - History of Present Illness Initial Comments: This 57-year-old white male presents with a complaint of a seizure. He cannot remember what happened but it was a witnessed seizure by family. He apparently was seizing for approximately 10 minutes per family. This is a generalized seizure. He doesn't want history of seizures. He was just admitted to the hospital approximately 2 weeks ago for seizures well. He had a stroke prior to that as well. He sees Dr. Mcneil from neurology for his seizures. He just saw him today and they were going to some medication changes but these have not been initiated as of yet. He states that he feels back to his baseline at this time. He denies any injuries or current complaints. - Related Data Home Medications Medication Instructions Recorded Confirmed Pantoprazole Sodium 40 mg PO BID 06/12/15 03/09/18 risperiDONE [RisperDAL] 0.5 mg PO DAILY 06/12/15 03/09/18 risperiDONE [RisperDAL] 1 mg PO HS 06/13/17 03/09/18 Ergocalciferol [Vitamin D2 50,000 unit PO Q7D 01/29/18 03/09/18 (DRISDOL)] Ibuprofen [Motrin] 800 mg PO TID PRN 03/09/18 03/09/18 Lacosamide [Vimpat] 200 mg PO BID 03/09/18 03/09/18 Lisinopril [Zestril] 20 mg PO DAILY 03/09/18 03/09/18 Metoprolol Tartrate [Lopressor] 12.5 mg PO BID 03/09/18 03/09/18 Pravastatin Sodium [Pravachol] 40 mg PO HS 03/09/18 03/09/18 Previous Rx's Medication Instructions Recorded levETIRAcetam [Keppra] 1,000 mg PO Q12HR #60 tab 02/11/18 Allergies Allergy/AdvReac Type Severity Reaction Status Date / Time No Known Allergies Allergy Verified 03/09/18 19:56 Review of Systems ROS Statement: Those systems with pertinent positive or pertinent negative responses have been documented in the HPI. ROS Other: All systems not noted in ROS Statement are negative. Past Medical History Past Medical History: CVA/TIA, GERD/Reflux, Hypertension, Seizure Disorder Additional Past Medical History / Comment(s): ) History of Any Multi-Drug Resistant Organisms: None Reported Past Surgical History: Appendectomy, Cholecystectomy, Orthopedic Surgery Additional Past Surgical History / Comment(s): rt shoulder surgery(plate/screws) , epidural inj to back, egd Past Anesthesia/Blood Transfusion Reactions: No Reported Reaction Past Psychological History: Depression Smoking Status: Current every day smoker Past Alcohol Use History: None Reported Past Drug Use History: None Reported - Past Family History Mother Family Medical History: Hypertension Additional Family Medical History / Comment(s): heart problems Father History Unknown: Yes General Exam - General Exam Comments Initial Comments: GENERAL: The patient is well nourished and well hydrated. VITAL SIGNS: Heart rate, blood pressure, respiratory rate reviewed as recorded in nurse's notes. EYES: Pupils are round and reactive. Extraocular movements are intact. No conjunctival / lid redness or swelling. ENT: No external evidence of injury, swelling, or ecchymosis. Airway is patent. Throat is clear. NECK: Nontender. No swelling or evidence of injury. No subcutaneous emphysema. Trachea is midline. No thyroid mass. HEART: Regular rate and rhythm. Good peripheral pulses. LUNGS/CHEST: Breath sounds clear and equal bilaterally. No rales, rhonchi, or wheezes. No ecchymosis, subcutaneous emphysema, or tenderness. ABDOMEN: Abdomen soft without tenderness. No palpable masses or organomegaly. No peritoneal signs. No abdominal wall swelling or ecchymosis. EXTREMITIES: No extremity tenderness. Normal muscle tone and function. No thoracolumbar tenderness. NEUROLOGIC: Sensation is grossly intact. Cranial nerve exam reveals face is symmetrical, tongue is midline, speech is clear. SKIN: No abrasions or ecchymosis is noted. No induration or masses noted. PSYCHIATRIC: Alert and oriented. Appropriate behavior and judgment. Limitations: no limitations Course Vital Signs 03/09/18 03/09/18 03/09/18 19:18 19:30 20:00 Temperature 99.5 F Pulse Rate 79 80 80 Respiratory 18 19 18 Rate Blood Pressure 164/101 154/98 160/91 O2 Sat by Pulse 97 92 L 92 L Oximetry 03/09/18 03/09/18 20:30 21:00 Temperature Pulse Rate 73 78 Respiratory 18 Rate Blood Pressure 139/84 145/86 O2 Sat by Pulse 96 100 Oximetry Medical Decision Making - Medical Decision Making The patient was seen and examined. All diagnostics were reviewed. The patient had a IV initiated and received Keppra 1 g intravenously as he didn't miss is 7 PM dose. He also received 1 mg Ativan. The EKG shows a normal sinus rhythm at a rate of 72. There is no acute ST-T wave changes identified. The IA intervals 172, QRS duration is 90, and the QTC intervals 455. The patient also had a computed tomography scan of brain which did not show any acute abnormalities. The laboratories unremarkable. He is feeling well and recheck. He states that he has no complaints and is at his baseline. Case is discussed with Dr. Mcneil and he feels as though patient also is stable for discharge with close follow-up. The patient understands and agrees and is subsequently discharged. - Lab Data Result diagrams: 03/09/18 19:50 03/09/18 19:50 Lab Results 03/09/18 03/09/18 Range/Units 19:50 19:50 WBC 6.4 (3.8-10.6) k/uL RBC 4.58 (4.30-5.90) m/uL Hgb 13.2 (13.0-17.5) gm/dL Hct 39.0 (39.0-53.0) % MCV 85.1 (80.0-100.0) fL MCH 28.8 (25.0-35.0) pg MCHC 33.8 (31.0-37.0) g/dL RDW 13.8 (11.5-15.5) % Plt Count 228 (150-450) k/uL Neutrophils % 58 % Lymphocytes % 32 % Monocytes % 5 % Eosinophils % 2 % Basophils % 0 % Neutrophils # 3.7 (1.3-7.7) k/uL Lymphocytes # 2.1 (1.0-4.8) k/uL Monocytes # 0.3 (0-1.0) k/uL Eosinophils # 0.1 (0-0.7) k/uL Basophils # 0.0 (0-0.2) k/uL Sodium 139 (137-145) mmol/L Potassium 4.4 (3.5-5.1) mmol/L Chloride 105 (98-107) mmol/L Carbon Dioxide 23 (22-30) mmol/L Anion Gap 11 mmol/L BUN 12 (9-20) mg/dL Creatinine 1.09 (0.66-1.25) mg/dL Est GFR (CKD-EPI)AfAm 87 (>60 ml/min/1.73 sqM) Est GFR (CKD-EPI)NonAf 76 (>60 ml/min/1.73 sqM) Glucose 73 L (74-99) mg/dL Calcium 9.4 (8.4-10.2) mg/dL Total Bilirubin 0.3 (0.2-1.3) mg/dL AST 34 (17-59) U/L ALT 52 (21-72) U/L Alkaline Phosphatase 85 (38-126) U/L Total Protein 6.9 (6.3-8.2) g/dL Albumin 3.9 (3.5-5.0) g/dL Disposition Clinical Impression: Breakthrough seizure Disposition: HOME SELF-CARE Condition: Good Instructions: Recurrent Seizures in Adults (ED) Is patient prescribed a controlled substance at d/c from ED?: No Referrals: Rosanne Mari MD [Primary Care Provider] - 1-2 days Margo Mcneil MD [STAFF PHYSICIAN] - 1-2 days Time of Disposition: 21:51
== END 2018-03-09 22:12 | disposition home or self-care (01) ==
LOC: EC 19:11
DX: G40.909 Epilepsy, unspecified, not intractable, without status epilepticus (principal); K21.9 Gastro-esophageal reflux disease without esophagitis; I10 Essential (primary) hypertension; F32.9 Major depressive disorder, single episode, unspecified; F17.200 Nicotine dependence, unspecified, uncomplicated; Z79.899 Other long term (current) drug therapy; Z86.73 Personal history of transient ischemic attack (TIA), and cerebral infarction without residual deficits
CPT/HCPCS: 36415; 93005; 80053; 85025; 70450; 99285; 96365; 96375; 96361; J2060; J1953

== ENCOUNTER 2018-06-17 12:17 | Emergency (ER) | payer OTHER ==
[2018-06-17 12:22] VITALS: TEMP 98.1
[2018-06-17] MEDS ORDERED: SODIUM CHLORIDE 0.9% 1,000 ML IV STA (12:36)
[2018-06-17 13:08] LABS: Basophils % (A) 0 %; Eosinophils # (A) 0.1 k/uL (0-0.7); Eosinophils % (A) 2 %; HCT 41.1 % (39.0-53.0); HGB 13.7 gm/dL (13.0-17.5); Lymphocytes # (A) 1.4 k/uL (1.0-4.8); Lymphocytes % (A) 33 %; MCH 29.1 pg (25.0-35.0); MCHC 33.4 g/dL (31.0-37.0); MCV 87.3 fL (80.0-100.0); Mean Platelet Volume 7.3; Monocytes # (A) 0.2 k/uL (0-1.0); Monocytes % (A) 5 %; Neutrophils # (A) 2.5 k/uL (1.3-7.7); Neutrophils % (A) 58 %; Platelet Count 218 k/uL (150-450); RBC 4.71 m/uL (4.30-5.90); RDW 12.6 % (11.5-15.5); WBC 4.3 k/uL (3.8-10.6)
[2018-06-17 13:20] LABS: Albumin 4.1 g/dL (3.5-5.0); Calcium 9.6 mg/dL (8.4-10.2); Total Bilirubin 0.4 mg/dL (0.2-1.3)
--- NOTE | 2018-06-17 13:24 | ED ---
General Adult HPI - General Chief complaint: Seizure Stated complaint: seizure Time Seen by Provider: 06/17/18 12:32 Source: patient, EMS, RN notes reviewed Mode of arrival: EMS Limitations: altered mental status - History of Present Illness Initial comments: Patient 57-year-old male with significant past medical history of seizures, presenting to the emergency room today by EMS, with chief complaint of seizure that occurred just prior to arrival. Patient does admit that he [facility] and he felt he was going to have a seizure. EMS states that staff was helped him down. He denies any injury or any pain. Does admit that he feels sleepy at this time otherwise feels normal. Cannot remember his seizure medications at this time but states he has been taking his meds. He does admit to a cough. Denies any other complaints. Patient denies any recent fever, chills, shortness of breath, back pain, abdominal pain, nausea or vomiting, numbness or tingling, headaches or visual changes, or any other complaints. - Related Data Home Medications Medication Instructions Recorded Confirmed Pantoprazole Sodium 40 mg PO BID 06/12/15 06/17/18 risperiDONE [RisperDAL] 0.5 mg PO DAILY 06/12/15 06/17/18 risperiDONE [RisperDAL] 1 mg PO HS 06/13/17 06/17/18 Ergocalciferol [Vitamin D2 50,000 unit PO MO 01/29/18 06/17/18 (DRISDOL)] Ibuprofen [Motrin] 800 mg PO TID PRN 03/09/18 06/17/18 Lacosamide [Vimpat] 200 mg PO BID 03/09/18 06/17/18 Lisinopril [Zestril] 20 mg PO DAILY 03/09/18 06/17/18 Metoprolol Tartrate [Lopressor] 12.5 mg PO BID 03/09/18 06/17/18 Pravastatin Sodium [Pravachol] 40 mg PO HS 03/09/18 06/17/18 Previous Rx's Medication Instructions Recorded levETIRAcetam [Keppra] 1,000 mg PO Q12HR #60 tab 02/11/18 Allergies Allergy/AdvReac Type Severity Reaction Status Date / Time No Known Allergies Allergy Verified 06/17/18 14:14 Review of Systems ROS Statement: Those systems with pertinent positive or pertinent negative responses have been documented in the HPI. ROS Other: All systems not noted in ROS Statement are negative. Past Medical History Past Medical History: CVA/TIA, GERD/Reflux, Hypertension, Seizure Disorder Additional Past Medical History / Comment(s): ) History of Any Multi-Drug Resistant Organisms: None Reported Past Surgical History: Appendectomy, Cholecystectomy, Orthopedic Surgery Additional Past Surgical History / Comment(s): rt shoulder surgery(plate/screws) , epidural inj to back, egd Past Anesthesia/Blood Transfusion Reactions: No Reported Reaction Past Psychological History: Depression Smoking Status: Current every day smoker Past Alcohol Use History: None Reported Past Drug Use History: None Reported - Past Family History Mother Family Medical History: Hypertension Additional Family Medical History / Comment(s): heart problems Father History Unknown: Yes General Exam - General Exam Comments Initial Comments: General: The patient is awake and alert, in no distress, and does not appear acutely ill. Eye: Pupils are equal, round and reactive to light, extra-ocular movements are intact. No nystagmus. There is normal conjunctiva bilaterally. No signs of icterus. Ears, nose, mouth and throat: There are moist mucous membranes and no oral lesions. Neck: The neck is supple, there is no tenderness or JVD. Cardiovascular: There is a regular rate and rhythm. No murmur, rub or gallop is appreciated. Respiratory: Lungs are clear to auscultation, respirations are non-labored, breath sounds are equal. No wheezes, stridor, rales, or rhonchi. Gastrointestinal: Soft nontender. Musculoskeletal: Normal ROM, no tenderness. Strength 5/5. Sensation intact. Pulses equal bilaterally 2+. Neurological: A&O x 3. CN II-XII intact, There are no obvious motor or sensory deficits. Coordination appears grossly intact. Speech is normal. Skin: Skin is warm and dry and no rashes or lesions are noted. Psychiatric: Cooperative, appropriate mood & affect, normal judgment. Limitations: altered mental status Course Vital Signs 06/17/18 06/17/18 12:19 14:00 Temperature 98.1 F Pulse Rate 108 H 101 H Respiratory 18 16 Rate Blood Pressure 152/99 150/94 O2 Sat by Pulse 98 96 Oximetry Medical Decision Making - Medical Decision Making Patient did have second seizure here in the emergency room. He has not been taking his Keppra as he was unable to get it filled. He has been out of this medication for the past [address] of the brain was negative. At this time family does not feel comfortable going home as he will not be able to get his medication filled. No coverage available here so patient will be transferred. Case discussed with attending physician Dr. villarreal who did talk with [facility] Dr Brock accept the patient - Lab Data Result diagrams: 06/17/18 12:44 06/17/18 12:44 Lab Results 06/17/18 06/17/18 Range/Units 12:44 12:44 WBC 4.3 (3.8-10.6) k/uL RBC 4.71 (4.30-5.90) m/uL Hgb 13.7 (13.0-17.5) gm/dL Hct 41.1 (39.0-53.0) % MCV 87.3 (80.0-100.0) fL MCH 29.1 (25.0-35.0) pg MCHC 33.4 (31.0-37.0) g/dL RDW 12.6 (11.5-15.5) % Plt Count 218 (150-450) k/uL Neutrophils % 58 % Lymphocytes % 33 % Monocytes % 5 % Eosinophils % 2 % Basophils % 0 % Neutrophils # 2.5 (1.3-7.7) k/uL Lymphocytes # 1.4 (1.0-4.8) k/uL Monocytes # 0.2 (0-1.0) k/uL Eosinophils # 0.1 (0-0.7) k/uL Basophils # 0.0 (0-0.2) k/uL Sodium 139 (137-145) mmol/L Potassium 4.0 (3.5-5.1) mmol/L Chloride 108 H (98-107) mmol/L Carbon Dioxide 20 L (22-30) mmol/L Anion Gap 11 mmol/L BUN 10 (9-20) mg/dL Creatinine 1.08 (0.66-1.25) mg/dL Est GFR (CKD-EPI)AfAm 88 (>60 ml/min/1.73 sqM) Est GFR (CKD-EPI)NonAf 76 (>60 ml/min/1.73 sqM) Glucose 81 (74-99) mg/dL Calcium 9.6 (8.4-10.2) mg/dL Total Bilirubin 0.4 (0.2-1.3) mg/dL AST 20 (17-59) U/L ALT 22 (21-72) U/L Alkaline Phosphatase 84 (38-126) U/L Total Protein 7.0 (6.3-8.2) g/dL Albumin 4.1 (3.5-5.0) g/dL Disposition Clinical Impression: Seizure Disposition: OTHER INSTITUTION NOT DEFINED Condition: Good Is patient prescribed a controlled substance at d/c from ED?: No Referrals: Rosanne Mari MD [Primary Care Provider] - 1-2 days Time of Disposition: 16:17 ([facility]) - Out of Hospital Transfer - Req. Specs Out of Hospital Transfer - Requested Specifics: Other Emergency Center ([facility])
--- NOTE | 2018-06-17 13:39 | XR ---
EXAMINATION TYPE: XR chest 2V DATE OF EXAM: 06/17/2018 COMPARISON: NONE TECHNIQUE: PA and lateral views submitted. HISTORY: Cough FINDINGS: The lungs are clear and there is no pneumothorax, pleural effusion, or focal pneumonia. Postsurgica l change right clavicle. Hypertrophic and degenerative change of the spine. Surgical clips in the rig ht upper quadrant. IMPRESSION: 1. No acute process.
[2018-06-17] MEDS ORDERED: levETIRAcetam IV 1,000 MG in SALINE 1 100ML.BAG IVPB STA (14:08)
[2018-06-17] MEDS ORDERED: LORazepam 2 MG/ML INJ IV STA (14:59)
--- NOTE | 2018-06-17 15:04 | CT ---
EXAMINATION TYPE: CT brain wo con DATE OF EXAM: 06/17/2018 COMPARISON: 03/09/2018 HISTORY: 57-year-old male Seizure TECHNIQUE: Examination was done in axial plane without intravenous contrast. Coronal and sagittal r econstructions performed. CT DLP: 1091.4 mGycm Automated exposure control for dose reduction was used. FINDINGS: There is no evidence of acute intracranial hemorrhage, acute ischemic changes, mass, mass-effect, or extra-axial fluid collection. There is no effacement of cerebral sulci or basal subarachnoid cister ns. There is no hydrocephalus. There is no midline shift. Collado-white matter distinction is preserv ed. Multiple old lacunar infarcts bilateral basal ganglia, left caudate head, and bilateral berrios radiat a regions. Paranasal sinuses and mastoid air cells are well pneumatized. Orbits and globes are intact. Some focal scalp thickening along the left parietal vertex is unchanged suggesting a chronic benign e tiology, possible scarring. IMPRESSION: No acute intracranial abnormality seen. Stable multiple deep white matter and basal ganglionic lacuna r infarcts.
--- NOTE | 2018-06-17 16:27 | ED ---
Medical Decision Making - Medical Decision Making Patient 57-year-old male with significant past medical history for seizures, presented for seizure this afternoon. He did have second seizure here in the emergency room. Patient is not been taking his Keppra as he was unable to get it filled for the past 4 days. Initially patient's family did not feel comfortable taking him home. Patient is alert and oriented at this time states he does not want to be transferred to another facility. Case was discussed with [facility] who was willing to accept in transfer paperwork was performed. However, at this time patient does not want to be transferred would like to be sent home. He will be given a prescription for his Keppra. Advised follow-up with family physician or his neurologist tomorrow. Advised return if symptoms increase worsen. - Lab Data Result diagrams: 06/17/18 12:44 06/17/18 12:44 Lab Results 06/17/18 06/17/18 Range/Units 12:44 12:44 WBC 4.3 (3.8-10.6) k/uL RBC 4.71 (4.30-5.90) m/uL Hgb 13.7 (13.0-17.5) gm/dL Hct 41.1 (39.0-53.0) % MCV 87.3 (80.0-100.0) fL MCH 29.1 (25.0-35.0) pg MCHC 33.4 (31.0-37.0) g/dL RDW 12.6 (11.5-15.5) % Plt Count 218 (150-450) k/uL Neutrophils % 58 % Lymphocytes % 33 % Monocytes % 5 % Eosinophils % 2 % Basophils % 0 % Neutrophils # 2.5 (1.3-7.7) k/uL Lymphocytes # 1.4 (1.0-4.8) k/uL Monocytes # 0.2 (0-1.0) k/uL Eosinophils # 0.1 (0-0.7) k/uL Basophils # 0.0 (0-0.2) k/uL Sodium 139 (137-145) mmol/L Potassium 4.0 (3.5-5.1) mmol/L Chloride 108 H (98-107) mmol/L Carbon Dioxide 20 L (22-30) mmol/L Anion Gap 11 mmol/L BUN 10 (9-20) mg/dL Creatinine 1.08 (0.66-1.25) mg/dL Est GFR (CKD-EPI)AfAm 88 (>60 ml/min/1.73 sqM) Est GFR (CKD-EPI)NonAf 76 (>60 ml/min/1.73 sqM) Glucose 81 (74-99) mg/dL Calcium 9.6 (8.4-10.2) mg/dL Total Bilirubin 0.4 (0.2-1.3) mg/dL AST 20 (17-59) U/L ALT 22 (21-72) U/L Alkaline Phosphatase 84 (38-126) U/L Total Protein 7.0 (6.3-8.2) g/dL Albumin 4.1 (3.5-5.0) g/dL Disposition Clinical Impression: Seizure Disposition: HOME SELF-CARE Condition: Good Instructions (If sedation given, give patient instructions): Recurrent Seizures in Adults (ED) Additional Instructions: Please follow-up the family doctor tomorrow or your neurologist. Please return to emergency room for any other concerns. Prescriptions: levETIRAcetam [Keppra] 1,000 mg PO Q12HR #60 tab Is patient prescribed a controlled substance at d/c from ED?: No Referrals: Rosanne Mari MD [Primary Care Provider] - 1-2 days Time of Disposition: 16:26
[2018-06-17 16:49] VITALS: BP 142/92; PULSE 98; RESP 18
[2018-06-18 05:25] LABS: Levetiracetam (Keppra) <1.0 ug/mL (3.0-60.0)
== END 2018-06-17 16:47 | disposition home or self-care (01) ==
LOC: EC 12:17
DX: G40.909 Epilepsy, unspecified, not intractable, without status epilepticus (principal); R05 Cough; K21.9 Gastro-esophageal reflux disease without esophagitis; I10 Essential (primary) hypertension; F17.200 Nicotine dependence, unspecified, uncomplicated; Z86.73 Personal history of transient ischemic attack (TIA), and cerebral infarction without residual deficits; Z79.899 Other long term (current) drug therapy
CPT/HCPCS: 36415; 70450; 71046; 80053; 80177; 80339; 85025; 93005; 96361; 96365; 96375; 99285

== ENCOUNTER → 2020-06-20 | Outpatient (CLI) | payer OTHER ==
[2020-06-20 11:02] LABS: African American GFR (CKD) 85.3 (60.0-200.0); Albumin 4.6 g/dL (3.80-4.90); Albumin/Globulin Ratio 2.71 (1.60-3.17); Anion Gap 8.4 mmol/L (4.00-12.00); BUN/Creat Ratio 17.27 Ratio (12.00-20.00); Calcium 9.2 mg/dL (8.7-10.3); Carbon Dioxide 24.6 mmol/L (21.6-31.8); Globulin 1.7 g/dL (1.6-3.3); Non-African American GFR(CKD) 73.6 (60.0-200.0); Potassium 4.1 mmol/L (3.5-5.5); Total Bilirubin 0.2 mg/dL (0.2-1.2); Total Protein 6.3 g/dL (6.2-8.2)
== END | disposition home or self-care (01) ==
LOC: LABWHC1 07:40
PROVIDERS: ATTEND Psychiatry & Neurology Pain Medicine
DX: G40.909 Epilepsy, unspecified, not intractable, without status epilepticus (principal); Z51.81 Encounter for therapeutic drug level monitoring
CPT/HCPCS: 36415; 80053; 80177